=== PATIENT | female | born 1950 | race Caucasian/White ===

== ENCOUNTER → 2016-12-08 | Outpatient (CLI) | payer MEDICARE, OTHER ==
[~2016-12-08] MED LIST: ACTOS30 MG PO; ASPIRIN81 M1 PO; CATAFLAM50 MG PO; CELEXA20 MG PO; CIPRO500 MG PO; FLAGYL500 MG PO; GABAPENTIN600 MG PO; GLIPIZIDE ER2.5 MG PO; GLIPIZIDE XL10 M1 PO; GLIPIZIDE10 MG PO; GREEN TEA150 MG PO; HYDROCODONE BIT1 T11 PO; JANUVIA100 MG PO; LEVOTHYROXIN0.025 MG PO; LISINOPRIL20 MG PO; LOFIBRA134 MG PO; METFORMIN HCL1000 MG PO; METFORMIN1000 MG PO; NEURONTIN300 MG PO; NEURONTIN600 MG PO; NOVOLIN 70100 UNIT/1 SQ; NOVOLOG 70/30 M10 ML SC; NOVOLOG FLEX100 U/ML SC; NOVOLOG10 ML SC; PRAVACHOL40 MG PO; PRAVACHOL80 MG PO; PRAVASTATIN; ROBAXIN750 MG PO; TRAMADOL HCL50 MG PO; VITAMIN D1000 IU PO; ZESTRIL,PRINIVIL5 MG PO
[2016-12-08 10:55] LABS: HEMOGLOBIN A1c 7.7 % (4.8-5.6)
[2016-12-08 11:03] LABS: ALBUMIN 3.8 gm/dl (3.1-4.5); BILIRUBIN, TOTAL 0.2 mg/dl (0.2-1.0); POTASSIUM 4.7 mmol/L (3.5-5.1); TOTAL PROTEIN 7.1 gm/dL (6.4-8.2)
[2016-12-08 11:09] LABS: MAGNESIUM 1.6 mg/dL (1.5-2.1); THYROID STIM HORMONE (HS) 2.88 uIU/ml (0.358-4.75)
== END | disposition home or self-care (01) ==
LOC: LAB 10:09
PROVIDERS: Family Medicine
DX: E11.65 Type 2 diabetes mellitus with hyperglycemia (principal); I10 Essential (primary) hypertension; E03.9 Hypothyroidism, unspecified; E78.5 Hyperlipidemia, unspecified

== ENCOUNTER → 2017-05-20 | Outpatient (CLI) | payer MEDICARE, OTHER ==
[2017-05-20 09:31] LABS: BASO % 0.4 % (0.0-1.0); EOS # 0.1 10*3/uL (0.0-0.4); EOS % 1.1 % (1.0-4.0); HEMATOCRIT 42.9 % (37.0-47.0); LYMPH # 2.2 10*3/uL (1.3-4.4); LYMPH % 27.4 % (27.0-41.0); MEAN CELL VOLUME 86.5 fl (81.0-99.0); MEAN CORPUSCULAR HGB 28.2 pg (27.0-31.0); MEAN CORPUSCULAR HGB CONC 32.6 g/dl (33.0-37.0); MEAN PLATELET VOLUME 10.8 fl (9.6-12.3); MONO # 0.5 10*3/uL (0.1-1.0); MONO % 6.4 % (3.0-9.0); NEUT # 5.1 10*3/uL (2.3-7.9); NEUT % 64.2 % (47.0-73.0); PLATELET COUNT AUTOMATED 236 10*3/uL (130-400); RED BLOOD COUNT 4.96 10*6/uL (4.10-5.10); RED CELL DISTRI WIDTH 14.1 % (0-14.5)
[2017-05-20 10:06] LABS: ALBUMIN 3.9 gm/dl (3.1-4.5); BILIRUBIN, TOTAL 0.3 mg/dl (0.2-1.0); POTASSIUM 4.5 mmol/L (3.5-5.1); TOTAL PROTEIN 7.7 gm/dL (6.4-8.2)
[2017-05-20 10:13] LABS: THYROID STIM HORMONE (HS) 3.23 uIU/ml (0.358-4.75)
[2017-05-21 05:09] LABS: MICRO ALBUMIN/CRE RATIO 54.3 (0.0-30.0)
== END | disposition home or self-care (01) ==
LOC: LAB 09:05
PROVIDERS: Family Medicine
DX: Z00.01 Encounter for general adult medical examination with abnormal findings (principal); E03.9 Hypothyroidism, unspecified; E11.65 Type 2 diabetes mellitus with hyperglycemia; E78.5 Hyperlipidemia, unspecified; E55.9 Vitamin D deficiency, unspecified

== ENCOUNTER → 2017-07-22 | Outpatient (CLI) | payer MEDICARE, OTHER | END | disposition home or self-care (01) | LOC: CARD 09:03 | DX: Z01.818 Encounter for other preprocedural examination (principal) ==

== ENCOUNTER 2017-09-18 17:52 | Emergency (ER) | payer MEDICARE, OTHER ==
[~2017-09-18] VITALS: Ht 160 cm; Wt 65.8 kg
[2017-09-18 17:55] VITALS: BP 156/73
[2017-09-18] MEDS ORDERED: AUGMENTIN 500500 M1 PO (19:39)
[2017-09-18] MEDS ORDERED: NAPROSYN500 MG PO (19:39)
[2017-09-18] MEDS ORDERED: ZOFRAN4 MG PO (19:39)
== END 2017-09-18 19:23 | disposition home or self-care (01) ==
LOC: ED 17:52
DX: S01.511A Laceration without foreign body of lip, initial encounter (principal); Z79.82 Long term (current) use of aspirin; Z79.4 Long term (current) use of insulin; Z98.51 Tubal ligation status; Y93.89 Activity, other specified; Y92.89 Other specified places as the place of occurrence of the external cause; W18.09XA Striking against other object with subsequent fall, initial encounter; Y99.8 Other external cause status

== ENCOUNTER → 2017-09-24 | Outpatient (CLI) | payer MEDICARE, OTHER ==
[~2017-09-24] MED LIST changes: +AUGMENTIN 500500 M1 PO; +NAPROSYN500 MG PO; +ZOFRAN4 MG PO
[2017-09-24 10:11] LABS: CREATININE 1.52 mg/dL (0.55-1.02); POTASSIUM 5.3 mmol/L (3.5-5.1)
== END | disposition home or self-care (01) ==
LOC: LAB 09:18
PROVIDERS: Registered Nurse Flight
DX: E11.65 Type 2 diabetes mellitus with hyperglycemia (principal)

== ENCOUNTER 2017-10-13 15:45 | Emergency (ER) | payer MEDICARE, OTHER ==
[~2017-10-13] VITALS: Ht 160 cm; Wt 64.9 kg
[2017-10-13] MEDS ORDERED: PRINIVIL5 M1 PO (16:33)
[2017-10-13] MEDS ORDERED: POTASSIUM99 M3 PO (16:34)
[2017-10-13 17:03] LABS: ALBUMIN 3.6 gm/dl (3.1-4.5); CREATININE 1.37 mg/dL (0.55-1.02); POTASSIUM 4.5 mmol/L (3.5-5.1); TOTAL PROTEIN 8.2 gm/dL (6.4-8.2)
[2017-10-13 17:31] LABS: BASO % 0.5 % (0.0-1.0); EOS # 0.3 10*3/uL (0.0-0.4); EOS % 4.5 % (1.0-4.0); HEMATOCRIT 41.3 % (37.0-47.0); HEMOGLOBIN 13.5 g/dl (12.0-16.0); LYMPH # 0.8 10*3/uL (1.3-4.4); LYMPH % 12.2 % (27.0-41.0); MEAN CELL VOLUME 85.9 fl (81.0-99.0); MEAN CORPUSCULAR HGB 28.1 pg (27.0-31.0); MEAN CORPUSCULAR HGB CONC 32.7 g/dl (33.0-37.0); MEAN PLATELET VOLUME 10.4 fl (9.6-12.3); MONO # 0.7 10*3/uL (0.1-1.0); MONO % 10.3 % (3.0-9.0); NEUT # 4.6 10*3/uL (2.3-7.9); NEUT % 72.2 % (47.0-73.0); PLATELET COUNT AUTOMATED 222 10*3/uL (130-400); RED BLOOD COUNT 4.81 10*6/uL (4.10-5.10); RED CELL DISTRI WIDTH 14.2 % (0-14.5); WHITE BLOOD COUNT 6.4 10*3/uL (4.8-10.8)
[2017-10-13 17:54] LABS: BILIRUBIN NEGATIVE (NEGATIVE); BLOOD TRACE-INTACT (NEGATIVE); CLARITY SL CLOUDY (CLEAR); COLOR YELLOW (YELLOW); GLUCOSE NEGATIVE (NEGATIVE); KETONE TRACE (NEGATIVE); LEUKO ESTERASE 3+ (NEGATIVE); NITRITE NEGATIVE (NEGATIVE); PH 5.5 (5.0-9.0); SPECIFIC GRAVITY 1.015 (1.005-1.030)
[2017-10-13 18:16] LABS: BACTERIA TRACE; EPITHELIAL CELLS 21-30
[2017-10-13 20:03] VITALS: BP 142/62
== END 2017-10-13 20:35 | disposition short-term general hospital (02) ==
LOC: ED 15:45
PROVIDERS: Nurse Practitioner Family
DX: G91.2 (Idiopathic) normal pressure hydrocephalus (principal); E11.9 Type 2 diabetes mellitus without complications; Z98.51 Tubal ligation status; Z79.899 Other long term (current) drug therapy; Z79.82 Long term (current) use of aspirin; Z79.4 Long term (current) use of insulin; Z91.81 History of falling

== ENCOUNTER → 2017-11-06 | Outpatient (CLI) | payer MEDICARE, OTHER ==
[~2017-11-06] MED LIST changes: +POTASSIUM99 M3 PO; +PRINIVIL5 M1 PO
[2017-11-06 10:16] LABS: BASO % 0.3 % (0.0-1.0); EOS # 0.1 10*3/uL (0.0-0.4); EOS % 0.8 % (1.0-4.0); HEMATOCRIT 40.3 % (37.0-47.0); HEMOGLOBIN 13.2 g/dl (12.0-16.0); LYMPH # 2.1 10*3/uL (1.3-4.4); LYMPH % 22.4 % (27.0-41.0); MEAN CELL VOLUME 86.3 fl (81.0-99.0); MEAN CORPUSCULAR HGB 28.3 pg (27.0-31.0); MEAN CORPUSCULAR HGB CONC 32.8 g/dl (33.0-37.0); MEAN PLATELET VOLUME 10.4 fl (9.6-12.3); MONO # 0.9 10*3/uL (0.1-1.0); MONO % 9.8 % (3.0-9.0); NEUT # 6.2 10*3/uL (2.3-7.9); NEUT % 66.3 % (47.0-73.0); PLATELET COUNT AUTOMATED 441 10*3/uL (130-400); RED BLOOD COUNT 4.67 10*6/uL (4.10-5.10); RED CELL DISTRI WIDTH 15.1 % (0-14.5); WHITE BLOOD COUNT 9.3 10*3/uL (4.8-10.8)
[2017-11-06 10:39] LABS: ALBUMIN 3.6 gm/dl (3.1-4.5); CREATININE 1.6 mg/dL (0.55-1.02); POTASSIUM 4.7 mmol/L (3.5-5.1)
== END | disposition home or self-care (01) ==
LOC: LAB 09:38 → US 10:00
PROVIDERS: Registered Nurse Flight
DX: K80.20 Calculus of gallbladder without cholecystitis without obstruction (principal); I10 Essential (primary) hypertension; N13.30 Unspecified hydronephrosis; K76.89 Other specified diseases of liver

== ENCOUNTER 2017-11-07 19:23 | Inpatient (IN) | payer MEDICARE, OTHER ==
[2017-11-07] VITALS (7 sets, daily range): BP systolic 80–126; BP diastolic 40–80
[~2017-11-07] VITALS: Ht 160 cm; Wt 58.2 kg
--- NOTE | ~2017-11-07 | CON ---
[place], [place] REPORT OF CONSULTATION NAME: NABOR YOU UNIT #: [id number] ROOM: 421 DOCTOR: CHRISTIANA GARAYMARTHA BIRTHDATE: [birth year] DOS: HISTORY OF PRESENT ILLNESS: A 67-year-old patient who has presented with chief complaint of multiple medical problems, among which has been bronchitis that has been addressed, among which is dysphagia to solid food. I have been asked for assessment of the patient in this regard. The patient's labs and records have been reviewed. Sonographic study of gallbladder, bilateral mild hydronephrosis and sludge and stone in the gallbladder. CBC differential, white blood cell 10, H and H of 11 and 36. Lactic acid 2.0. INR 1.0. Urinalysis benign. CT scan of the ____ with contrast, mild parietal scalp hematoma, sinusitis, no intracranial acute pathology. Moderate degenerative changes in cervical spine all has been recognized. PAST MEDICAL HISTORY: Associated with depression, hypertension, hypothyroidism, hyperlipidemia, and diabetes mellitus. PAST SURGICAL HISTORY: Tubal ligation. SOCIAL HISTORY: Nonsmoker and nonalcohol consumer. FAMILY HISTORY: Noncontributory. ALLERGIES: No known medication. MEDICATIONS: Medication list has been reviewed. She has been on clopidogrel and aspirin amongst the other medications. REVIEW OF SYSTEMS: HEENT: Denies double vision or blurred vision. RESPIRATORY: Denies acute shortness of breath. Improvement in breathing. CARDIOVASCULAR: Denies chest pain. DIGESTIVE SYSTEM: Dysphagia to solid food. PHYSICAL EXAMINATION: VITAL SIGNS: Stable. HEENT: Head normocephalic, nontraumatic. Mouth and buccal mucosa benign. NECK: Supple. No thyromegaly. CHEST: Symmetric anatomy. Decreased air entry in general. Otherwise, normal breath sounds. HEART: Normal sinus rhythm. No gallop, no murmur. ABDOMEN: Soft. No hepato-organomegaly. Bowel sounds present. No pulsatile mass. EXTREMITIES: No cyanosis, no pedal edema. NEUROLOGIC: Alert, oriented to time, place, and person. IMPRESSION: Solid food dysphagia, diabetes, hypothyroidism, hypertension, hyperlipidemia all has been recognized. [place], [place] REPORT OF CONSULTATION NAME: NABOR YOU UNIT #: [id number] ROOM: 421 DOCTOR: CHRISTIANA GARAY,MARTHA BIRTHDATE: [birth year] PLAN AND DISCUSSION: We are going to proceed with endoscopic assessment of upper GI tract. Her BUN and creatinine has been normal. MARTHA VILLEDA MD CM:CONSTR:REPORT OF CONSULTATION 1257 11/10/17 1330 interface
--- NOTE | ~2017-11-07 | O ---
[place], [place] O[facility]ATIVE NOTE [id number] UN[facility] #: [id number] ROOM: 421 DOCTOR: CHRISTIANA GARAY,MARTHA BIRTHDATE: [birth year] DOS: 11/10/2017 INDICATIONS: The patient is a 67-year-old who was presented with chief complaint of epigastric abdominal pain, dysphagia, dyspepsia, undergoing investigation. The patient has been on aspirin and Plavix. PROCEDURE: Today's procedure part of investigation is panendoscopy plus photographic series. PREMEDICATION: Versed and Diprivan. SCOPE: Olympus forward-viewing gastroscope Q10 video. REPORT: After putting the patient in left lateral position and application of lubricant to the scope, the scope was introduced. Thereafter, under direct visualization, advanced through the length of esophagus without difficulty. Distal esophageal ulcers, which is relatively moderate to significant was noticed and distal esophageal benign stricture was noticed, hiatal hernia, which is about 2.5 cm identified. Photographic series from the event was obtained. Gastric pouch was entered. Gastritis seen. Duodenal bulb, second and third part within normal limits. The patient extubated, tolerated procedure well. The patient was not biopsied or was not dilated due to the fact that the patient has been on Plavix and aspirin. At the present time, I recommend this patient remains to on Protonix 40 mg p.o. b.i.d. and have re-endoscopy of upper gastrointestinal tract in a month or so redone and as such a time, we are hoping that we can hold aspirin and Plavix for 1 week, so that we can perform some dilation for her. MARTHA VILLEDA MD CM:OPRECORD:OPERATIVE NOTE 1331 1344 MARTHA VILLEDA MD 11/10/17 1345 interface
--- NOTE | 2017-11-07 19:55 | NUR ---
DR GUERRA NOTIFIED OF ORTHOSTATIC BP
--- NOTE | 2017-11-07 20:02 | NUR ---
PT HAD RECENTLY BEEN DISCHARGED FROM [facility], DISCHARGED 10/13/17 WITH HYDROCEPHALIS, TO F/U WITH NEURO IN NOVEMBER 2017
[2017-11-07 20:13] LABS: BASO % 0.4 % (0.0-1.0); BILIRUBIN NEGATIVE (NEGATIVE); BLOOD NEGATIVE (NEGATIVE); CLARITY SL CLOUDY (CLEAR); COLOR YELLOW (YELLOW); EOS # 0.1 10*3/uL (0.0-0.4); EOS % 1.3 % (1.0-4.0); GLUCOSE NEGATIVE (NEGATIVE); HEMOGLOBIN 11.7 g/dl (12.0-16.0); KETONE TRACE (NEGATIVE); LEUKO ESTERASE NEGATIVE (NEGATIVE); LYMPH # 1.6 10*3/uL (1.3-4.4); LYMPH % 15.8 % (27.0-41.0); MEAN CELL VOLUME 85.3 fl (81.0-99.0); MEAN CORPUSCULAR HGB 27.7 pg (27.0-31.0); MEAN CORPUSCULAR HGB CONC 32.5 g/dl (33.0-37.0); MEAN PLATELET VOLUME 10.4 fl (9.6-12.3); MONO % 9.6 % (3.0-9.0); NEUT # 7.4 10*3/uL (2.3-7.9); NEUT % 71.5 % (47.0-73.0); NITRITE NEGATIVE (NEGATIVE); PLATELET COUNT AUTOMATED 348 10*3/uL (130-400); RED BLOOD COUNT 4.22 10*6/uL (4.10-5.10); RED CELL DISTRI WIDTH 14.8 % (0-14.5); SPECIFIC GRAVITY >= 1.030 (1.005-1.030); UROBILINOGEN 0.2 E.U./dl (0.2-1.0); WHITE BLOOD COUNT 10.4 10*3/uL (4.8-10.8)
[2017-11-07 20:28] LABS: LIPASE 958 U/L (73-393)
[2017-11-07 20:30] LABS: BACTERIA TRACE; RBC 0-2 rbc/hpf (0-2); WBC 0-2 wbc/hpf (0-5)
[2017-11-07 20:32] LABS: TROPONIN I < 0.015 ng/ml (<0.045)
--- NOTE | 2017-11-07 21:01 | NUR ---
PT STATES "I FEEL SO MUCH BETTER ALL OVER ALREADY"
[2017-11-07 21:06] LABS: CREATININE 2.3 mg/dL (0.55-1.02); POTASSIUM 5.1 mmol/L (3.5-5.1); TOTAL PROTEIN 6.8 gm/dL (6.4-8.2)
--- NOTE | 2017-11-07 21:58 | NUR ---
DR GUERRA REMOVED Chantale CABAN PLACING CHUN, WHICH HOLDS UP ADMISSION TO FLOOR, NIKKI NOTIFIED
--- NOTE | 2017-11-07 22:30 | NUR ---
A 67, admitted to , under the services of SUSAN Segura DO with a diagnosis of SYNCOPE. Chief complaint is FELL AT HOME. Patient arrived via stretcher from ER. Monitor applied. Initial assessment completed. Vital signs taken and recorded. SUSAN SEGURA DO notified of admission to the unit. Orders received. See assessment for past medical history, medications and allergies. Patient and/or family oriented to unit. [facility]. Clothing/patient valuable form completed. GALE BARTLETT
--- NOTE | 2017-11-07 22:56 | NUR ---
SPOKE TO DR LCOK REGARDING ORDER FOR ORTHOSTATIC BP. MADE HIM AWARE THAT ORTHER WERE JUST DONE IN ER AND POSITIVE. HE STATE TO RE CHECK ORTHOS AY 8AM. ALSO MADE HIM AWARE OF WOUNDS, ORDERS RECEIVED.
--- NOTE | 2017-11-07 23:39 | NUR ---
DR ASHVIN MORGAN ARE OF PT HAVING SVT HR 130'S CURRENTY NSR 60'S. HE STATES TO JUST MONITOR IT FOR NOW.
--- NOTE | 2017-11-07 23:39 | NUR ---
DR LOCK MADE AWARE OF MED REC UP TO DATE
--- NOTE | 2017-11-07 23:43 | NUR ---
DRESSING CHANGED PER ORDER
--- NOTE | 2017-11-08 02:00 | NUR ---
SLEEPING. RESP EASY AND NONLABORED ON ROOM AIR. NO SIGNS OF DISTRESS NOTED. IVF INFUSING PER ORDER WITHOUT DIFFICULTY. CM INTACT. BED ALARM ON. CALL LIGHT IN REACH. WILL CONTINUE TO MONITOR.
--- NOTE | 2017-11-08 05:14 | NUR ---
PT BS CRITICAL LOW, 31. AMP D50 GIVEN AT THIS TIME. PT ALERT, RESPONSIVE, ORIENTED. ASYMPTOMATIC. ORANGE JUICE PROVIDED WELL
[2017-11-08 05:48] LABS: CREATININE 1.59 mg/dL (0.55-1.02); POTASSIUM 4.4 mmol/L (3.5-5.1)
[2017-11-08 05:55] LABS: THYROID STIM HORMONE (HS) 1.74 uIU/ml (0.358-4.75)
[2017-11-08 06:05] LABS: BASO % 0.5 % (0.0-1.0); EOS # 0.1 10*3/uL (0.0-0.4); EOS % 1.7 % (1.0-4.0); HEMATOCRIT 33.8 % (37.0-47.0); LYMPH # 1.4 10*3/uL (1.3-4.4); LYMPH % 16.9 % (27.0-41.0); MEAN CELL VOLUME 85.4 fl (81.0-99.0); MEAN CORPUSCULAR HGB 27.8 pg (27.0-31.0); MEAN CORPUSCULAR HGB CONC 32.5 g/dl (33.0-37.0); MEAN PLATELET VOLUME 10.6 fl (9.6-12.3); MONO # 0.8 10*3/uL (0.1-1.0); MONO % 9.5 % (3.0-9.0); NEUT # 5.9 10*3/uL (2.3-7.9); NEUT % 70.6 % (47.0-73.0); PLATELET COUNT AUTOMATED 319 10*3/uL (130-400); RED BLOOD COUNT 3.96 10*6/uL (4.10-5.10); RED CELL DISTRI WIDTH 14.9 % (0-14.5); WHITE BLOOD COUNT 8.3 10*3/uL (4.8-10.8)
[2017-11-08 06:25] LABS: ACT PARTIAL THROMBO TIME 27.7 SECONDS (20.8-31.5)
--- NOTE | 2017-11-08 06:25 | NUR ---
BS RECHECK 229
--- NOTE | 2017-11-08 07:08 | NUR ---
24 HR chart check completed.
[2017-11-08 08:00] VITALS: BP 97/54
--- NOTE | 2017-11-08 09:13 | NUR ---
Prison Teacher in to talk to patient. Patient states lives at home with . There are few steps in the home. Physician: charissa alexandra Pharmacy: [facility] health services: none Patient's level of ADLs: INDEPENDENT Patient has working utilities: all working DME: none Follow-up physician's appointment after d/c: will be made by hospitalist nurse director upon discharge Does patient want to access PORTAL?: no Discharge plan discussed with patient, patient lives at home with , she states she is independent in adls and ambulation, patient states she will be going back home and denies any home needs. GATO NAVA
[2017-11-08 09:29] LABS: VITAMIN D, 25-HYDROXY 40.1 ng/mL (30-100)
--- NOTE | 2017-11-08 09:49 | NUR ---
ORTHOS POSITIVE. GILBERT FREY NOTIFIED.
--- NOTE | 2017-11-08 10:43 | NUR ---
PHYSICAL THERAPY PAtient evaluated on 4, full evaluation to follow. Continue with PT as per plan of care with fall, recent fall at home down stairs with LOC/closed haed trauma and lacerations, documented in chart orthostatic hypotension and acute debility precautions. Qualifies for SNF, patient refusing. will require complete home health services if d/c to home. PAtient is moderate complexity via chart review, tests and evaluation: 30348. Thank you for this referral. Catalina Raymond,PT
--- NOTE | 2017-11-08 11:13 | NUR ---
Patient available for Occupational Therapy d/t testing. OTR will attempt at a later time. Libra Leon OTR/l
--- NOTE | 2017-11-08 11:39 | NUR ---
NABOR YOU [id number] Please refer to the physician's history and physical for past medical history, comorbid conditions, and allergies. Diagnosis: SYNCOPE Wild Score: 16,AT RISK WOUND DESCRIPTIONS: Location of the wound: right side of head Type of wound: laceration Thickness: Partial Size: 1.5cm x 0.2cm x 0.1cm Tunneling: none Undermining: none Sinus Tract: none Presence of Exudate: none Amount: None Color: Red Odor: None Periwound Skin Appearance: Normal Wound edges: approximated with 3 ramandeep Pain (associated with wound): tender when patient lies on it. How does patient state this happened? pt stated she fell a couple days ago at home. Location of the wound: left forearm proximal Type of wound: skin tear Thickness: Partial Size: 1.7cm x 2.1cm x 0.1cm Tunneling: none Undermining: none Sinus Tract: none Presence of Exudate: Serosanguineous Amount: Light Color: Red Odor: None Periwound Skin Appearance: Normal Wound edges: approximated Pain (associated with wound): none at time of assessment How does patient state this happened? pt stated she fell at home a couple days ago. Location of the wound: left distal forearm Type of wound: skin tear Thickness: Partial Size: 3.1cm x 1.3cm x 0.1cm Tunneling: none Undermining: none Sinus Tract: none Presence of Exudate: Serosanguineous Amount: Light Color: Red Odor: None Periwound Skin Appearance: Normal Wound edges: approximated Pain (associated with wound): none at time of assessment How does patient state this happened? pt stated she fell at home a couple days ago Surface the patient is resting on: Isoflex SKIN PREVENTION RECOMMENDATION: 1. Pressure redistribution support surface as appropriate 2. Elevate heels 3. Remove boots/TEDS every shift and reapply 4. Head of bed 30 degrees as tolerated 5. Assess nutrition and hydration 6. Manage moisture 7. Avoid the use of containment devices while in bed 8. Use absorptive products on surfaces limit layers of linens on bed 9. Turn and reposition every 1-2 hours in bed and every 1 hour in chair as tolerated 10. Weight shifts every 15 minutes while up in chair 11. Offloading with pillows or device to keep heels elevated off bed 12. Monitor skin at least every shift 13. Inspect under medical devices twice a day WOUND TREATMENT RECOMMENDATIONS: Continue current orders for proximal forearm skin tear. Cleanse left distal forearm skin tear with nss and apply sureprep around wound hydrogel to wound versatel to wound cover with optifoam gentle.
[2017-11-08 12:00] VITALS: BP 107/63
--- NOTE | 2017-11-08 12:00 | NUR ---
Received order for snf placement. In to discuss with patient, she stated she will not go to a skilled facility. I asked if she would be interested in VNA and she said she already has that in place with a company from [place]. I will contact [facility] and see if patient is active with them.
--- NOTE | 2017-11-08 12:03 | NUR ---
Contacted [facility], they are not active with this patient and have not had her in the past.
--- NOTE | 2017-11-08 13:38 | NUR ---
Occupational Therapy evaluation completed this date onl 4 with full eval to follow. Precautions include fall risk, bed, chair alarm, LAC COURTE OREILLES w/ hearing aides, moderate complexity level [id number]. Recommend OT per pOC and SNF upon d/c to allow safe return home w/ family at OF. Thank you for this referral. Libra Leon OTR/l
--- NOTE | 2017-11-08 13:40 | NUR ---
Patient is now agreeing to snf placement. Discussed with her and family memebers at bedside. Offered list of facilities, patient stated she lives in [facility] and would like a referral made to [facility]. Contacted [facility] and faxed referral, patient will require 3 night stay, waiting on acceptance.
--- NOTE | 2017-11-08 14:58 | NUR ---
PHYSICAL THERAPY Patient presented to therapy in seated position with report of feeling much better and wanting to do therapy. Patient performed sit to stand transfer with SBA and verbal cues for pushing off chair with hands. Patient had left lean when standing at W/W. Patient performed gait with W/W and CGA to Min. A X 1 for 100' x 1 with left lateral lean and unsteadiness. Patient was going to attempt 2 steps , but this CRIMINAL JUSTICE SOCIAL WORKER determined that the patient was too unsteady and off-balance at this time, to safely attempt stairs. Patient performed seated ther ex in all planes of movement x 20 reps each. Patient was left in seated position with body alarm attached and call light within reach. YRN REYES CRIMINAL JUSTICE SOCIAL WORKER
[2017-11-08 16:00] VITALS: BP 105/60
--- NOTE | 2017-11-08 19:30 | NUR ---
PT. AWAKE, ALERT, AND ORIENTED X 3. PT. IN BED AT THIS TIME WITH FAMILY IN THE ROOM. PT. DENIES CP, SOB, AND PAIN AT THIS TIME. PT. C/O DIZZINESS WHEN AMBULATING EARLIER. PT. IS + ORTHOS, ADVISED TO USE CALL LIGHT FOR ASSISTANCE, AND TO TAKE TIME WHEN STANDING. BED ALARM ON, WHEELS LOCKED, BED IN LOWEST POSITION. SEE SHIFT ASSESSMENT.
[2017-11-08 20:00] VITALS: BP 119/88
--- NOTE | 2017-11-08 21:57 | NUR ---
D/C SLIDING SCALE DUPLICATE AT THIS TIME.
[2017-11-09] VITALS: BP 109/61
[2017-11-09 06:18] LABS: BASO % 0.3 % (0.0-1.0); EOS # 0.3 10*3/uL (0.0-0.4); EOS % 5.4 % (1.0-4.0); HEMATOCRIT 30.1 % (37.0-47.0); HEMOGLOBIN 9.8 g/dl (12.0-16.0); LYMPH # 1.8 10*3/uL (1.3-4.4); LYMPH % 28.8 % (27.0-41.0); MEAN CELL VOLUME 86.2 fl (81.0-99.0); MEAN CORPUSCULAR HGB 28.1 pg (27.0-31.0); MEAN CORPUSCULAR HGB CONC 32.6 g/dl (33.0-37.0); MEAN PLATELET VOLUME 10.1 fl (9.6-12.3); MONO # 0.8 10*3/uL (0.1-1.0); MONO % 12.3 % (3.0-9.0); NEUT # 3.3 10*3/uL (2.3-7.9); NEUT % 52.7 % (47.0-73.0); PLATELET COUNT AUTOMATED 248 10*3/uL (130-400); RED BLOOD COUNT 3.49 10*6/uL (4.10-5.10); RED CELL DISTRI WIDTH 14.8 % (0-14.5); WHITE BLOOD COUNT 6.3 10*3/uL (4.8-10.8)
[2017-11-09 06:51] LABS: ALBUMIN 2.4 gm/dl (3.1-4.5); CREATININE 1.12 mg/dL (0.55-1.02); POTASSIUM 4.9 mmol/L (3.5-5.1); TOTAL PROTEIN 5.6 gm/dL (6.4-8.2)
--- NOTE | 2017-11-09 07:35 | NUR ---
Mary Jo from [facility] stated they have no beds available at this time. In to discuss with patient who then asked for a referral to [facility]> Referral faxed to [facility], waiting on acceptance.
[2017-11-09 08:00] VITALS: BP 150/73
--- NOTE | 2017-11-09 08:01 | NUR ---
PHYSICAL THERAPY Patient was sleeping at 8:00 am. Will check back later. YRN REYES BROKERAGE PURCHASE AND SALE CLERK
--- NOTE | 2017-11-09 10:07 | NUR ---
PRN PAIN GIVEN FOR 3/10 R SHOULDER PAIN.
--- NOTE | 2017-11-09 10:25 | NUR ---
PHYSICAL THERAPY Xi seen this AM 1:1 for her therapy yaron, this is my first time working with her, present. Transfer sit/stand and up on wheeled walker standing balance and needing cues to push off from her chair to satnd. Gait with W/W 90' X 2, with one sitting rest. Pt did not lean to her left this gait. Pt given verbal cueing for gait, walker, turn safety, stop/start gait and back sitting up in her bedside chair, call light and phone, going to stay. LEXY PPAPAS GRAIN THRESHER.
--- NOTE | 2017-11-09 10:45 | NUR ---
PATIENT SEEN FOR 32 MINUTES OT 1:1 THIS DATE. PATIENT IDENTIFIED BY NAME AND DATE OF . PATIENT IN BED UPON ARRIVAL. PATIENT COMPLETED SUPINE TO SIT CGA. COMPLETED BUE UE STR. SEATED EOB WITH F+ BALANCE AND COMPLETED BUE AROM ALL PLANES 2 SETS X 10 REPS WITH MOD VERBAL CUES TECHNIQUE/FORM. PATIENT DECLINED TO COMPLETE GROOMING THIS DATE STATING THAT SHE HAS CHUN IN HER HEAD AND DOES NOT WANT TO BOTHER. PATIENT COMPLETED SIT TO STAND FROM BED CGA VERBAL CUES PROPER HAND PLACEMENT SECONDARY DECREASE SAFETY AWARENESS. PATIENT COMPLETED STANDING TOLERANCE ACTIVITY USE FWW 3 MINUTES WITH FATIGUE. COMPLETED AMBULATION SHORT DISTANCE USE FWW CGA WITH LEANING NOTED LEFT SIDE AND VERBAL CUES TO CORRECT AND UNSTEADY GAIT. PATIENT SEATED IN RECLINER WITH BREAKFAST TRAY AND AND CALL LIGHT WITHIN REACH. ALVINO YOU
--- NOTE | 2017-11-09 11:07 | NUR ---
PRN PAIN MED EFFECTIVE PT DENIES PAIN.
[2017-11-09 12:00] VITALS: BP 112/51; BP 140/53
--- NOTE | 2017-11-09 12:18 | NUR ---
Patient accepted to [facility], PASS/RR completed online in [facility] system. Patient requires 3 night stay, can go tomorrow 11/10/17 if medically stable for discharge.
--- NOTE | 2017-11-09 14:10 | NUR ---
PHYSICAL THERAPY Pt seen this PM 1:1 for her therapy, All transfers were MIN A X 1, with cueing for safety. Gait 10 steps with MOD CAN WORKER X 1, verbal cues for stair safety and will need someone with her at all times. Gait with wheeled walker 80' X 2, one sitting rest, HR 89 BPM after getting back in bed, family present. LEXY PAPPAS BINGO USHER.
[2017-11-09 16:00] VITALS: BP 168/84
--- NOTE | 2017-11-09 19:50 | NUR ---
PT. AWAKE, ALERT AND ORIENTED X 3 AT THIS TIME. PT. IN BED AT THIS TIME WITH FAMILY AT BEDSIDE. PT. DENIES CP, SOB, OR PAIN AT THIS TIME. PT. STATED SHE HAS INTERMITTENT PERIODS OF DIFFICULTY SWALLOWING. CALL LIGHT WITHIN REACH, BED IN LOWEST POSITION, WHEELS LOCKED. SEE SHIFT ASSESSMENT.
[2017-11-09 20:00] VITALS: BP 134/68; BP 167/80
--- NOTE | 2017-11-09 20:30 | NUR ---
SPOKE WITH DR. VILLEDA AT THIS TIME REGARDING CONSULT. ORDERS RECEIVED.
--- NOTE | 2017-11-09 22:11 | NUR ---
NOTIFIED DR. DUMONT OF PTS. 14 BEAT RUN OF SVT, AND PTS. STABLE STATUS AND RETURN TO NSR. PER DR. DUMONT, HE WILL BE UP TO SEE THE PT.
[2017-11-10] VITALS (10 sets, daily range): BP systolic 133–170; BP diastolic 62–75
[2017-11-10 06:49] LABS: BASO % 0.5 % (0.0-1.0); EOS # 0.3 10*3/uL (0.0-0.4); EOS % 4.9 % (1.0-4.0); HEMATOCRIT 33.2 % (37.0-47.0); HEMOGLOBIN 10.7 g/dl (12.0-16.0); LYMPH # 1.9 10*3/uL (1.3-4.4); LYMPH % 31.3 % (27.0-41.0); MEAN CELL VOLUME 85.1 fl (81.0-99.0); MEAN CORPUSCULAR HGB 27.4 pg (27.0-31.0); MEAN CORPUSCULAR HGB CONC 32.2 g/dl (33.0-37.0); MEAN PLATELET VOLUME 10.3 fl (9.6-12.3); MONO # 0.6 10*3/uL (0.1-1.0); MONO % 10.5 % (3.0-9.0); NEUT # 3.2 10*3/uL (2.3-7.9); NEUT % 52.3 % (47.0-73.0); PLATELET COUNT AUTOMATED 268 10*3/uL (130-400); RED CELL DISTRI WIDTH 14.8 % (0-14.5); WHITE BLOOD COUNT 6.1 10*3/uL (4.8-10.8)
[2017-11-10 07:09] LABS: ALBUMIN 2.7 gm/dl (3.1-4.5); ALKALINE PHOSPHATASE 216 U/L (45-117); CHLORIDE 111 mmol/L (98-107); CREATININE 0.84 mg/dL (0.55-1.02); POTASSIUM 4.9 mmol/L (3.5-5.1); SGOT/AST 23 IU/L (3-35); SGPT/ALT 30 U/L (12-78); SODIUM 141 mmol/L (136-145); TOTAL PROTEIN 6.5 gm/dL (6.4-8.2)
[2017-11-10 07:38] LABS: BUN 14 mg/dl (7-24)
--- NOTE | 2017-11-10 08:06 | NUR ---
OCCUPATIONAL THERAPY CO-SIGN I approve of the Occupational Therapy notes written above. COLE SOTO OTR/Hector
--- NOTE | 2017-11-10 10:23 | NUR ---
PHYSICAL THERAPY Mrs Urban seen this AM 1:1 for her therapy session, said she's to her her EDG this morning. Transfer supine/sit CGA X 1, sitting balance X 4 min and did not get dizzy, CGA X 1. Sit/stand standing balance with wheeled walker MIN A X 1. Gait 210' X 1, said thats all this morning just feel tired this morning. Gait with W/W verbal cueing for gait, walker, turn safety no LOB with this and just wanting to rest. Pt with call light and phone, will check back later today. LEXY PAPPAS LABORATORY WORKER.
[2017-11-10] MEDS ORDERED: PROTONIX40 MG PO (14:40)
[2017-11-10] MEDS ORDERED: REGLAN5 MG PO (14:40)
--- NOTE | 2017-11-10 14:52 | NUR ---
Patient is discharged to [facility], transportation via private car with her daughter. Told [facility] patient should arrive around 4:30
--- NOTE | 2017-11-10 15:45 | NUR ---
Discharge instructions reviewed with patient/family. Patient receptive and verbalizes understanding. Follow-up care arranged. Written instructions given to patient/family. JONNY PATRICK
--- NOTE | 2017-11-11 07:58 | NUR ---
PHYSICAL THERAPY CO-SIGN I approve of the Phyical Therapy notes written above. CANDELARIA SOLER PT
== END 2017-11-10 15:45 | disposition other institution (70) | DRG 637 ==
LOC: ED 19:23 → EDHOLD 21:31 → 4E 21:31
PROVIDERS: Emergency Medicine Emergency Medical Services; Internal Medicine; Registered Nurse; ADMIT Internal Medicine
PROC: 0DJ08ZZ Inspection of Upper Intestinal Tract, Via Natural or Artificial Opening Endoscopic (ICD-10-PCS; principal; 2017-11-10)
DX: E11.65 Type 2 diabetes mellitus with hyperglycemia (principal); N17.0 Acute kidney failure with tubular necrosis; E67.8 Other specified hyperalimentation; E11.649 Type 2 diabetes mellitus with hypoglycemia without coma; K22.10 Ulcer of esophagus without bleeding; R13.10 Dysphagia, unspecified; R55 Syncope and collapse; E86.0 Dehydration; E86.1 Hypovolemia; W18.39XA Other fall on same level, initial encounter; W10.9XXA Fall (on) (from) unspecified stairs and steps, initial encounter; F32.9 Major depressive disorder, single episode, unspecified; I10 Essential (primary) hypertension; E03.9 Hypothyroidism, unspecified; E78.2 Mixed hyperlipidemia; K29.70 Gastritis, unspecified, without bleeding; K44.9 Diaphragmatic hernia without obstruction or gangrene; S01.81XA Laceration without foreign body of other part of head, initial encounter; Z79.4 Long term (current) use of insulin; Z81.1 Family history of alcohol abuse and dependence; Y93.89 Activity, other specified; Y92.099 Unspecified place in other non-institutional residence as the place of occurrence of the external cause; Y99.8 Other external cause status; Z82.49 Family history of ischemic heart disease and other diseases of the circulatory system; Z79.82 Long term (current) use of aspirin; Z79.84 Long term (current) use of oral hypoglycemic drugs; Z79.899 Other long term (current) drug therapy; Z98.51 Tubal ligation status

== ENCOUNTER → 2017-12-23 | Outpatient (CLI) | payer MEDICARE, OTHER ==
[~2017-12-23] MED LIST changes: +PROTONIX40 MG PO; +REGLAN5 MG PO
[2017-12-24 07:06] LABS: IMMUNOGLOBULIN G, QNT 716 mg/dL (700-1600); IMMUNOGLOBULIN M, QNT 58 mg/dL (26-217)
[2017-12-25 11:04] LABS: METHYLMALONIC ACID 706961 182 nmol/L (0-378)
== END ==
LOC: LAB 10:59
PROVIDERS: Psychiatry & Neurology Neurology
DX: I10 Essential (primary) hypertension (principal); R20.0 Anesthesia of skin; R20.2 Paresthesia of skin; R93.0 Abnormal findings on diagnostic imaging of skull and head, not elsewhere classified; Z79.899 Other long term (current) drug therapy

== ENCOUNTER → 2018-01-21 | Outpatient (CLI) | payer MEDICARE, OTHER ==
[2018-01-21 09:38] LABS: HEMATOCRIT 40.6 % (37.0-47.0); HEMOGLOBIN 12.7 g/dl (12.0-16.0); MEAN CELL VOLUME 86.6 fl (81.0-99.0); MEAN CORPUSCULAR HGB 27.1 pg (27.0-31.0); MEAN CORPUSCULAR HGB CONC 31.3 g/dl (33.0-37.0); MEAN PLATELET VOLUME 11.2 fl (9.6-12.3); RED BLOOD COUNT 4.69 10*6/uL (4.10-5.10); RED CELL DISTRI WIDTH 14.6 % (0-14.5); WHITE BLOOD COUNT 7.7 10*3/uL (4.8-10.8)
[2018-01-21 10:01] LABS: ALBUMIN 3.8 gm/dl (3.1-4.5); CREATININE 1.12 mg/dL (0.55-1.02); POTASSIUM 4.6 mmol/L (3.5-5.1); TOTAL PROTEIN 7.5 gm/dL (6.4-8.2)
[2018-01-21 10:07] LABS: THYROID STIM HORMONE (HS) 2.15 uIU/ml (0.358-4.75)
== END | disposition home or self-care (01) ==
LOC: LAB 09:01
PROVIDERS: Registered Nurse Flight
DX: E03.9 Hypothyroidism, unspecified (principal); E55.9 Vitamin D deficiency, unspecified; E78.5 Hyperlipidemia, unspecified; N18.4 Chronic kidney disease, stage 4 (severe); E11.65 Type 2 diabetes mellitus with hyperglycemia

== ENCOUNTER 2018-04-19 17:37 | Inpatient (IN) | payer MEDICARE, OTHER ==
[~2018-04-19] VITALS: Ht 157.5 cm; Wt 62.1 kg
[2018-04-19 17:42] VITALS: BP 140/51
[2018-04-19 17:56] VITALS: BP 140/51
[2018-04-19] MEDS ORDERED: GLIPIZIDE ER10 M1 PO (18:21)
[2018-04-19] MEDS ORDERED: ASPIR 8181 MG PO (18:22)
[2018-04-19 18:29] LABS: BASO % 0.3 % (0.0-1.0); EOS # 0.1 10*3/uL (0.0-0.4); EOS % 1.3 % (1.0-4.0); HEMATOCRIT 35.1 % (37.0-47.0); HEMOGLOBIN 11.6 g/dl (12.0-16.0); LYMPH # 1.9 10*3/uL (1.3-4.4); LYMPH % 24.6 % (27.0-41.0); MEAN CELL VOLUME 87.5 fl (81.0-99.0); MEAN CORPUSCULAR HGB 28.9 pg (27.0-31.0); MEAN PLATELET VOLUME 10.9 fl (9.6-12.3); MONO # 0.6 10*3/uL (0.1-1.0); MONO % 7.6 % (3.0-9.0); NEUT % 65.8 % (47.0-73.0); PLATELET COUNT AUTOMATED 218 10*3/uL (130-400); RED BLOOD COUNT 4.01 10*6/uL (4.10-5.10); RED CELL DISTRI WIDTH 14.7 % (0-14.5); WHITE BLOOD COUNT 7.6 10*3/uL (4.8-10.8)
[2018-04-19 18:41] LABS: ACT PARTIAL THROMBO TIME 22.7 SECONDS (20.8-31.5); INTERNATIONAL NORM RATIO 0.9 (2.0-3.5)
[2018-04-19 18:46] LABS: ALBUMIN 3.6 gm/dl (3.1-4.5); ALKALINE PHOSPHATASE 55 U/L (45-117); BUN 23 mg/dl (7-24); CHLORIDE 105 mmol/L (98-107); CREATININE 1.45 mg/dL (0.55-1.02); LIPASE 407 U/L (73-393); POTASSIUM 4.8 mmol/L (3.5-5.1); SGOT/AST 18 IU/L (3-35); SGPT/ALT 20 U/L (12-78); SODIUM 138 mmol/L (136-145)
[2018-04-19 18:47] LABS: TROPONIN I < 0.015 ng/ml (<0.045)
[2018-04-19 18:48] LABS: TOTAL PROTEIN 6.6 gm/dL (6.4-8.2)
[2018-04-19 20:17] LABS: BILIRUBIN NEGATIVE (NEGATIVE); BLOOD NEGATIVE (NEGATIVE); CLARITY SL CLOUDY (CLEAR); COLOR YELLOW (YELLOW); GLUCOSE 3+ (NEGATIVE); KETONE NEGATIVE (NEGATIVE); LEUKO ESTERASE 1+ (NEGATIVE); NITRITE NEGATIVE (NEGATIVE); PH 5.5 (5.0-9.0); UROBILINOGEN 0.2 E.U./dl (0.2-1.0)
[2018-04-19 20:34] LABS: RBC 0-2 rbc/hpf (0-2)
[2018-04-19 20:35] LABS: BACTERIA 2+
[2018-04-20] VITALS: BP 150/66
[2018-04-20 06:31] LABS: BASO % 0.5 % (0.0-1.0); EOS # 0.1 10*3/uL (0.0-0.4); EOS % 1.9 % (1.0-4.0); HEMATOCRIT 37.6 % (37.0-47.0); HEMOGLOBIN 11.9 g/dl (12.0-16.0); LYMPH % 34.4 % (27.0-41.0); MEAN CELL VOLUME 86.2 fl (81.0-99.0); MEAN CORPUSCULAR HGB 27.3 pg (27.0-31.0); MEAN CORPUSCULAR HGB CONC 31.6 g/dl (33.0-37.0); MEAN PLATELET VOLUME 10.7 fl (9.6-12.3); MONO # 0.5 10*3/uL (0.1-1.0); MONO % 9.2 % (3.0-9.0); NEUT # 3.1 10*3/uL (2.3-7.9); NEUT % 53.7 % (47.0-73.0); PLATELET COUNT AUTOMATED 190 10*3/uL (130-400); RED BLOOD COUNT 4.36 10*6/uL (4.10-5.10); RED CELL DISTRI WIDTH 14.6 % (0-14.5); WHITE BLOOD COUNT 5.9 10*3/uL (4.8-10.8)
[2018-04-20 06:43] LABS: ALBUMIN 3.5 gm/dl (3.1-4.5); ALKALINE PHOSPHATASE 50 U/L (45-117); BUN 16 mg/dl (7-24); CHLORIDE 112 mmol/L (98-107); CHOLESTEROL 186 mg/dL (<200); CREATININE 1.04 mg/dL (0.55-1.02); FREE T4 0.69 ng/dl (0.76-1.46); HDL CHOLESTEROL 35 mg/dl (40-60); LDL CHOLESTEROL 100 mg/dL (9-159); PHOSPHOROUS 3.5 mg/dL (2.5-4.9); POTASSIUM 5.2 mmol/L (3.5-5.1); SGOT/AST 12 IU/L (3-35); SGPT/ALT 16 U/L (12-78); SODIUM 147 mmol/L (136-145); TOTAL PROTEIN 6.6 gm/dL (6.4-8.2); TRIGLYCERIDES 255 mg/dl (<150); VLDL CHOLESTEROL 51 mg/dL (6-40)
[2018-04-20 08:00] VITALS: BP 138/83
[2018-04-20] MEDS ORDERED: PROTONIX40 MG PO (10:43)
[2018-04-20] MEDS ORDERED: REGLAN5 MG PO (10:44)
[2018-04-20 12:00] VITALS: BP 140/78
[2018-04-20 16:00] VITALS: BP 176/66
== END 2018-04-20 18:40 | disposition home or self-care (01) | DRG 683 ==
LOC: ED 17:37 → EDHOLD 20:26 → 5E 20:55
PROVIDERS: Family Medicine; Nurse Practitioner Family
DX: N17.0 Acute kidney failure with tubular necrosis (principal); E87.2 Acidosis; E11.22 Type 2 diabetes mellitus with diabetic chronic kidney disease; E11.65 Type 2 diabetes mellitus with hyperglycemia; I67.82 Cerebral ischemia; D64.9 Anemia, unspecified; E03.9 Hypothyroidism, unspecified; E78.2 Mixed hyperlipidemia; R29.6 Repeated falls; E86.0 Dehydration; R74.8 Abnormal levels of other serum enzymes; E78.1 Pure hyperglyceridemia; I12.9 Hypertensive chronic kidney disease with stage 1 through stage 4 chronic kidney disease, or unspecified chronic kidney disease; N18.3 Chronic kidney disease, stage 3 (moderate); M17.12 Unilateral primary osteoarthritis, left knee; E87.5 Hyperkalemia; Z86.73 Personal history of transient ischemic attack (TIA), and cerebral infarction without residual deficits; Z79.84 Long term (current) use of oral hypoglycemic drugs; Z79.82 Long term (current) use of aspirin; Z79.899 Other long term (current) drug therapy; Z98.51 Tubal ligation status; Z82.49 Family history of ischemic heart disease and other diseases of the circulatory system; Z81.1 Family history of alcohol abuse and dependence

== ENCOUNTER → 2018-04-23 | Outpatient (CLI) | payer MEDICARE, OTHER ==
[~2018-04-23] MED LIST changes: +ASPIR 8181 MG PO; +GLIPIZIDE ER10 M1 PO
[2018-04-23 09:09] LABS: CREATININE 1.25 mg/dL (0.55-1.02); POTASSIUM 4.7 mmol/L (3.5-5.1)
== END | disposition home or self-care (01) ==
LOC: LAB 08:14
PROVIDERS: Internal Medicine
DX: E87.5 Hyperkalemia (principal)

== ENCOUNTER → 2018-05-30 | Outpatient (CLI) | payer MEDICARE, OTHER ==
[2018-05-30 13:26] LABS: CHOLESTEROL 207 mg/dL (<200); HDL CHOLESTEROL 36 mg/dl (40-60); TRIGLYCERIDES 646 mg/dl (<150)
[2018-05-30 13:33] LABS: HEMATOCRIT 39.2 % (37.0-47.0); HEMOGLOBIN 12.2 g/dl (12.0-16.0); MEAN CELL VOLUME 89.3 fl (81.0-99.0); MEAN CORPUSCULAR HGB 27.8 pg (27.0-31.0); MEAN CORPUSCULAR HGB CONC 31.1 g/dl (33.0-37.0); MEAN PLATELET VOLUME 11.7 fl (9.6-12.3); RED BLOOD COUNT 4.39 10*6/uL (4.10-5.10); RED CELL DISTRI WIDTH 14.6 % (0-14.5); WHITE BLOOD COUNT 10.2 10*3/uL (4.8-10.8)
== END | disposition home or self-care (01) ==
LOC: LAB 12:23 → US 12:30
PROVIDERS: Registered Nurse Flight
DX: M71.22 Synovial cyst of popliteal space [Baker], left knee (principal); E11.22 Type 2 diabetes mellitus with diabetic chronic kidney disease; N18.4 Chronic kidney disease, stage 4 (severe); E78.5 Hyperlipidemia, unspecified; M25.862 Other specified joint disorders, left knee; M79.89 Other specified soft tissue disorders

== ENCOUNTER → 2018-06-22 | Outpatient (CLI) | payer MEDICARE, OTHER ==
[2018-06-22 11:28] LABS: HEMATOCRIT 39.6 % (37.0-47.0); HEMOGLOBIN 12.5 g/dl (12.0-16.0); MEAN CORPUSCULAR HGB 27.8 pg (27.0-31.0); MEAN CORPUSCULAR HGB CONC 31.6 g/dl (33.0-37.0); MEAN PLATELET VOLUME 11.1 fl (9.6-12.3); RED BLOOD COUNT 4.5 10*6/uL (4.10-5.10); RED CELL DISTRI WIDTH 13.6 % (0-14.5); WHITE BLOOD COUNT 11.2 10*3/uL (4.8-10.8)
[2018-06-22 11:56] LABS: ALBUMIN 3.8 gm/dl (3.1-4.5); CREATININE 1.73 mg/dL (0.55-1.02); POTASSIUM 4.5 mmol/L (3.5-5.1); TOTAL PROTEIN 7.4 gm/dL (6.4-8.2)
[2018-06-22 12:02] LABS: THYROID STIM HORMONE (HS) 3.04 uIU/ml (0.358-4.75)
[2018-06-23 08:10] LABS: RHEUMATOID ARTHRITIS FACTOR <10.0 IU/mL (0.0-13.9)
[2018-06-23 10:08] LABS: SJOGREN ANTI-SS-A <0.2 AI (0.0-0.9); SJOREN AB, ANTI-SS-B <0.2 AI (0.0-0.9)
[2018-06-23 17:10] LABS: DILUTE PROTHROMBIN TIME 45.9 sec (0.0-55.0); DPT CONFIRM RATIO 1.19 Ratio (0.00-1.40); LUPUS DRVVT 40.5 sec (0.0-47.0); LUPUS REFLEX INTERPRETATION Comment: (.); PTT-LA 28.9 sec (0.0-51.9); THROMBIN TIME 18.3 sec (0.0-23.0)
== END | disposition home or self-care (01) ==
LOC: LAB 10:43
PROVIDERS: Registered Nurse Flight
DX: E11.65 Type 2 diabetes mellitus with hyperglycemia (principal); R76.8 Other specified abnormal immunological findings in serum; E78.5 Hyperlipidemia, unspecified; E03.9 Hypothyroidism, unspecified

== ENCOUNTER 2018-11-14 17:03 | Inpatient (IN) | payer MEDICARE, OTHER ==
[~2018-11-14] VITALS: Ht 160 cm; Wt 60.6 kg
--- NOTE | ~2018-11-14 | EKG ---
[place], [place] ELECTROCARDIOGRAM REPORT NAME: NABOR YOU UNIT #: [id number] ROOM: 512 DOCTOR: TASHI DRAFT REPORT BIRTHDATE: [birth year] [facility] Test Date: 2018-11-14 Test Time: 17:13:43 Pat Name: NABOR YOU Department: er Room: 512 Gender: F Extractor Loader And Unloader: EKG.[place] : 1950 Requested By: MARGARITA FISH Order Number: [id number] Reading MD: Gama Calloway MD Measurements Intervals [place] Rate: 65 P: 23 GA: 175 QRS: -42 QRSD: 89 T: -4 QT: 402 QTc: 418 Interpretive Statements Sinus rhythm Abnormal R-wave progression, early transition Left anterior fascicular block Baseline wander in lead(s) II,III,aVF Electronically Signed On 11-15-2018 8:23:13 PST by Gama Calloway MD CM:EKGRPT:ELECTROCARDIOGRAM REPORT 1713 0823 MARGARITA GIRALDO DRAFT REPORT MARGARITA FISH DO
[2018-11-14 17:06] VITALS: BP 156/72
[2018-11-14 17:31] LABS: BASO % 0.5 % (0.0-1.0); EOS # 0.1 10*3/uL (0.0-0.4); EOS % 0.9 % (1.0-4.0); HEMATOCRIT 35.3 % (37.0-47.0); HEMOGLOBIN 11.3 g/dl (12.0-16.0); LYMPH # 1.6 10*3/uL (1.3-4.4); LYMPH % 19.9 % (27.0-41.0); MEAN CELL VOLUME 86.9 fl (81.0-99.0); MEAN CORPUSCULAR HGB 27.8 pg (27.0-31.0); MEAN PLATELET VOLUME 10.9 fl (9.6-12.3); MONO # 0.6 10*3/uL (0.1-1.0); MONO % 7.8 % (3.0-9.0); NEUT # 5.5 10*3/uL (2.3-7.9); NEUT % 70.5 % (47.0-73.0); PLATELET COUNT AUTOMATED 260 10*3/uL (130-400); RED BLOOD COUNT 4.06 10*6/uL (4.10-5.10); RED CELL DISTRI WIDTH 13.5 % (0-14.5); WHITE BLOOD COUNT 7.9 10*3/uL (4.8-10.8)
[2018-11-14 17:40] LABS: ACT PARTIAL THROMBO TIME 23.4 SECONDS (20.8-31.5)
[2018-11-14 17:50] LABS: ALBUMIN 3.5 gm/dl (3.1-4.5); ALKALINE PHOSPHATASE 65 U/L (45-117); BUN 21 mg/dl (7-24); CHLORIDE 109 mmol/L (98-107); CREATININE 1.39 mg/dL (0.55-1.02); LIPASE 335 U/L (73-393); POTASSIUM 4.5 mmol/L (3.5-5.1); SGOT/AST 8 IU/L (3-35); SGPT/ALT 12 U/L (12-78); SODIUM 140 mmol/L (136-145); TOTAL PROTEIN 6.8 gm/dL (6.4-8.2); TROPONIN I < 0.015 ng/ml (<0.045)
[2018-11-14 18:10] LABS: BILIRUBIN NEGATIVE (NEGATIVE); BLOOD NEGATIVE (NEGATIVE); CLARITY CLEAR (CLEAR); COLOR YELLOW (YELLOW); GLUCOSE 1+ (NEGATIVE); KETONE NEGATIVE (NEGATIVE); LEUKO ESTERASE 1+ (NEGATIVE); NITRITE NEGATIVE (NEGATIVE); PH 5.5 (5.0-9.0); UROBILINOGEN 0.2 E.U./dl (0.2-1.0)
[2018-11-14 18:18] LABS: RBC 0-2 rbc/hpf (0-2)
[2018-11-14 20:15] VITALS: BP 144/75; BP 167/67
[2018-11-14 20:20] VITALS: BP 144/75
[2018-11-15] VITALS (7 sets, daily range): BP systolic 110–180; BP diastolic 60–102
[2018-11-15 06:31] LABS: BASO % 0.4 % (0.0-1.0); EOS # 0.1 10*3/uL (0.0-0.4); EOS % 1.3 % (1.0-4.0); HEMATOCRIT 36.1 % (37.0-47.0); HEMOGLOBIN 11.8 g/dl (12.0-16.0); LYMPH # 2.1 10*3/uL (1.3-4.4); LYMPH % 29.8 % (27.0-41.0); MEAN CELL VOLUME 85.1 fl (81.0-99.0); MEAN CORPUSCULAR HGB 27.8 pg (27.0-31.0); MEAN CORPUSCULAR HGB CONC 32.7 g/dl (33.0-37.0); MEAN PLATELET VOLUME 10.6 fl (9.6-12.3); MONO # 0.6 10*3/uL (0.1-1.0); MONO % 7.8 % (3.0-9.0); NEUT # 4.2 10*3/uL (2.3-7.9); NEUT % 60.3 % (47.0-73.0); PLATELET COUNT AUTOMATED 251 10*3/uL (130-400); RED BLOOD COUNT 4.24 10*6/uL (4.10-5.10); RED CELL DISTRI WIDTH 13.5 % (0-14.5)
[2018-11-15 07:04] LABS: ALBUMIN 3.1 gm/dl (3.1-4.5); BUN 15 mg/dl (7-24); CHLORIDE 114 mmol/L (98-107); POTASSIUM 3.9 mmol/L (3.5-5.1); SGOT/AST 12 IU/L (3-35); SODIUM 144 mmol/L (136-145)
[2018-11-15 07:15] LABS: ALKALINE PHOSPHATASE 64 U/L (45-117); CREATININE 1.05 mg/dL (0.55-1.02); FREE T4 0.78 ng/dl (0.76-1.46); SGPT/ALT 13 U/L (12-78); TOTAL PROTEIN 6.6 gm/dL (6.4-8.2)
[2018-11-15] MEDS ORDERED: EFFEXOR XR37.5 M1 PO (11:13)
[2018-11-16] VITALS: BP 115/69
[2018-11-16 06:47] LABS: BUN 12 mg/dl (7-24); CHLORIDE 117 mmol/L (98-107); CREATININE 1.04 mg/dL (0.55-1.02); POTASSIUM 5.1 mmol/L (3.5-5.1); SODIUM 146 mmol/L (136-145)
== END 2018-11-16 10:51 | disposition home health service (06) | DRG 312 ==
LOC: ED 17:03 → 5E 19:03 → EDHOLD 19:03 → 5E 19:30
PROVIDERS: Emergency Medicine; Family Medicine
DX: I95.1 Orthostatic hypotension (principal); N17.0 Acute kidney failure with tubular necrosis; G91.2 (Idiopathic) normal pressure hydrocephalus; E86.0 Dehydration; N18.3 Chronic kidney disease, stage 3 (moderate); E11.22 Type 2 diabetes mellitus with diabetic chronic kidney disease; R26.81 Unsteadiness on feet; R29.6 Repeated falls; F32.9 Major depressive disorder, single episode, unspecified; E78.1 Pure hyperglyceridemia; E78.2 Mixed hyperlipidemia; D64.9 Anemia, unspecified; E11.65 Type 2 diabetes mellitus with hyperglycemia; Z66 Do not resuscitate; Z51.5 Encounter for palliative care; I12.9 Hypertensive chronic kidney disease with stage 1 through stage 4 chronic kidney disease, or unspecified chronic kidney disease; M16.10 Unilateral primary osteoarthritis, unspecified hip; M17.12 Unilateral primary osteoarthritis, left knee; R00.1 Bradycardia, unspecified; E87.8 Other disorders of electrolyte and fluid balance, not elsewhere classified; M71.22 Synovial cyst of popliteal space [Baker], left knee; Z79.4 Long term (current) use of insulin; Z98.51 Tubal ligation status; Z81.1 Family history of alcohol abuse and dependence; Z82.49 Family history of ischemic heart disease and other diseases of the circulatory system; Z84.89 Family history of other specified conditions; Z79.82 Long term (current) use of aspirin; Z79.84 Long term (current) use of oral hypoglycemic drugs; Z79.899 Other long term (current) drug therapy

== ENCOUNTER 2018-12-28 15:49 | Inpatient (IN) | payer MEDICARE, OTHER ==
[~2018-12-28] VITALS: Ht 160 cm; Wt 61.4 kg
--- NOTE | ~2018-12-28 | EKG ---
[place], [place] ELECTROCARDIOGRAM REPORT NAME: NABOR YOU UNIT #: [id number] ROOM: 416 DOCTOR: TASHI DRAFT REPORT BIRTHDATE: [birth year] [facility] Test Date: 2018-12-28 Test Time: 16:13:14 Pat Name: NABOR YOU Department: Room: 416 Gender: F Human Geography Faculty Member: Karmen Robert : 1950 Requested By: BONNY SCHAEFER PA-C Order Number: [id number] Reading MD: Kathleen Gonzalez MD Measurements Intervals [place] Rate: 70 P: 50 WI: 194 QRS: -31 QRSD: 90 T: 57 QT: 391 QTc: 422 Interpretive Statements Sinus rhythm Atrial premature complex Left axis deviation Compared to ECG 11/14/2018 17:13:43 Atrial premature complex(es) now present Left-axis deviation now present Left anterior fascicular block no longer present Electronically Signed On 12-30-2018 9:43:24 PST by Kathleen Gonzalez MD CM:EKGRPT:ELECTROCARDIOGRAM REPORT 1613 0943 BONNY SCHAEFER PA-C EPIPHANY DRAFT REPORT BONNY SCHAEFER PA-C
[~2018-12-28 15:49] MED LIST changes: +EFFEXOR XR37.5 M1 PO; -GLIPIZIDE ER10 M1 PO
[2018-12-28 16:28] LABS: BASO % 0.3 % (0.0-1.0); EOS % 0.3 % (1.0-4.0); HEMATOCRIT 38.5 % (37.0-47.0); HEMOGLOBIN 12.5 g/dl (12.0-16.0); LYMPH # 2.1 10*3/uL (1.3-4.4); LYMPH % 18.7 % (27.0-41.0); MEAN CELL VOLUME 85.7 fl (81.0-99.0); MEAN CORPUSCULAR HGB 27.8 pg (27.0-31.0); MEAN CORPUSCULAR HGB CONC 32.5 g/dl (33.0-37.0); MEAN PLATELET VOLUME 10.4 fl (9.6-12.3); MONO # 0.8 10*3/uL (0.1-1.0); MONO % 7.3 % (3.0-9.0); NEUT # 8.1 10*3/uL (2.3-7.9); NEUT % 72.8 % (47.0-73.0); PLATELET COUNT AUTOMATED 294 10*3/uL (130-400); RED BLOOD COUNT 4.49 10*6/uL (4.10-5.10); RED CELL DISTRI WIDTH 13.4 % (0-14.5); WHITE BLOOD COUNT 11.1 10*3/uL (4.8-10.8)
[2018-12-28 16:45] LABS: ALBUMIN 3.6 gm/dl (3.1-4.5); ALKALINE PHOSPHATASE 75 U/L (45-117); BUN 16 mg/dl (7-24); CHLORIDE 108 mmol/L (98-107); LIPASE 226 U/L (73-393); POTASSIUM 3.8 mmol/L (3.5-5.1); SGOT/AST 12 IU/L (3-35); SGPT/ALT 13 U/L (12-78); SODIUM 143 mmol/L (136-145); TOTAL PROTEIN 7.5 gm/dL (6.4-8.2)
[2018-12-28 16:46] LABS: TROPONIN I < 0.015 ng/ml (<0.045)
[2018-12-28 18:00] LABS: BILIRUBIN NEGATIVE (NEGATIVE); BLOOD TRACE-LYSED (NEGATIVE); CLARITY CLEAR (CLEAR); COLOR YELLOW (YELLOW); GLUCOSE NEGATIVE (NEGATIVE); KETONE NEGATIVE (NEGATIVE); LEUKO ESTERASE NEGATIVE (NEGATIVE); NITRITE NEGATIVE (NEGATIVE); PH 6.5 (5.0-9.0); UROBILINOGEN 0.2 E.U./dl (0.2-1.0)
[2018-12-28 18:07] LABS: BACTERIA 2+; WBC 0-2 wbc/hpf (0-5)
[2018-12-28 19:00] VITALS: BP 127/97
[2018-12-28 20:00] VITALS: BP 164/81
[2018-12-28] MEDS ORDERED: OZEMPIC0.25 MG/01 SQ (20:45)
[2018-12-29] VITALS: BP 147/78
[2018-12-29 07:02] LABS: BASO % 0.2 % (0.0-1.0); EOS # 0.1 10*3/uL (0.0-0.4); EOS % 0.5 % (1.0-4.0); HEMOGLOBIN 11.9 g/dl (12.0-16.0); LYMPH % 19.2 % (27.0-41.0); MEAN CELL VOLUME 87.2 fl (81.0-99.0); MEAN CORPUSCULAR HGB 27.3 pg (27.0-31.0); MEAN CORPUSCULAR HGB CONC 31.3 g/dl (33.0-37.0); MEAN PLATELET VOLUME 10.6 fl (9.6-12.3); MONO # 0.8 10*3/uL (0.1-1.0); MONO % 7.2 % (3.0-9.0); NEUT # 7.6 10*3/uL (2.3-7.9); NEUT % 72.6 % (47.0-73.0); PLATELET COUNT AUTOMATED 267 10*3/uL (130-400); RED BLOOD COUNT 4.36 10*6/uL (4.10-5.10); RED CELL DISTRI WIDTH 13.3 % (0-14.5); WHITE BLOOD COUNT 10.5 10*3/uL (4.8-10.8)
[2018-12-29 07:23] LABS: CHLORIDE 108 mmol/L (98-107); POTASSIUM 4.4 mmol/L (3.5-5.1); SODIUM 142 mmol/L (136-145)
[2018-12-29 07:42] LABS: BUN 15 mg/dl (7-24); CHOLESTEROL 193 mg/dL (<200); CREATININE 1.06 mg/dL (0.55-1.02); FREE T4 0.71 ng/dl (0.76-1.46); HDL CHOLESTEROL 35 mg/dl (40-60); LDL CHOLESTEROL 103 mg/dL (9-159); PHOSPHOROUS 3.7 mg/dL (2.5-4.9); TRIGLYCERIDES 274 mg/dl (<150); VLDL CHOLESTEROL 55 mg/dL (6-40)
[2018-12-29 08:00] VITALS: BP 142/78
[2018-12-29 12:00] VITALS: BP 166/70
[2018-12-29] MEDS ORDERED: ZOFRAN4 MG SL (14:22)
== END 2018-12-29 16:00 | disposition home or self-care (01) | DRG 683 ==
LOC: ED 15:49 → EDHOLD 18:16 → 4E 18:16
PROVIDERS: Internal Medicine; Physician Assistant; ADMIT Internal Medicine
DX: N17.0 Acute kidney failure with tubular necrosis (principal); I67.82 Cerebral ischemia; E86.0 Dehydration; R26.81 Unsteadiness on feet; E87.8 Other disorders of electrolyte and fluid balance, not elsewhere classified; R79.89 Other specified abnormal findings of blood chemistry; D72.810 Lymphocytopenia; R82.71 Bacteriuria; R31.9 Hematuria, unspecified; D64.9 Anemia, unspecified; R80.9 Proteinuria, unspecified; E11.22 Type 2 diabetes mellitus with diabetic chronic kidney disease; I12.9 Hypertensive chronic kidney disease with stage 1 through stage 4 chronic kidney disease, or unspecified chronic kidney disease; N18.9 Chronic kidney disease, unspecified; K57.90 Diverticulosis of intestine, part unspecified, without perforation or abscess without bleeding; K80.20 Calculus of gallbladder without cholecystitis without obstruction; M48.061 Spinal stenosis, lumbar region without neurogenic claudication; Z66 Do not resuscitate; Z51.5 Encounter for palliative care; R11.2 Nausea with vomiting, unspecified; M17.12 Unilateral primary osteoarthritis, left knee; F32.9 Major depressive disorder, single episode, unspecified; H91.90 Unspecified hearing loss, unspecified ear; Z98.51 Tubal ligation status; Z81.1 Family history of alcohol abuse and dependence; Z82.49 Family history of ischemic heart disease and other diseases of the circulatory system; Z91.81 History of falling; Z79.82 Long term (current) use of aspirin; Z79.899 Other long term (current) drug therapy; Z79.84 Long term (current) use of oral hypoglycemic drugs; Z87.11 Personal history of peptic ulcer disease

== ENCOUNTER → 2019-02-02 | Outpatient (CLI) | payer MEDICARE, OTHER ==
[~2019-02-02] MED LIST changes: +EFFEXOR XR37.5 MG PO; +HYDROCODONE-AC1 EAC1 PO; +Humalog SQ; +K-PHOS500 MG PO; +LISINOPRIL10 M1 PO; +MAGNESIUM OXID400 MG PO; +OZEMPIC0.25 MG/01 SQ; +OZEMPIC1 MG/0.75 SQ; +PRAVACHOL80 M1 PO; +SYNTHROID25 MCG PO; +TAMIFLU 75MG CA75 MG PO; +TRESIBA FL200 UNIT/1 SQ; +TRESIBA100 UNIT/1 SQ; +VENLAFAXINE H37.5 M2 PO; +VITAMIN D32000 UNI1 PO; +ZOFRAN4 MG SL
[2019-02-02 09:27] LABS: HEMOGLOBIN 12.5 g/dl (12.0-16.0); MEAN CELL VOLUME 86.9 fl (81.0-99.0); MEAN CORPUSCULAR HGB 27.8 pg (27.0-31.0); MEAN CORPUSCULAR HGB CONC 32.1 g/dl (33.0-37.0); MEAN PLATELET VOLUME 10.7 fl (9.6-12.3); RED BLOOD COUNT 4.49 10*6/uL (4.10-5.10); RED CELL DISTRI WIDTH 13.5 % (0-14.5); WHITE BLOOD COUNT 8.9 10*3/uL (4.8-10.8)
[2019-02-02 09:35] LABS: ALBUMIN 3.6 gm/dl (3.1-4.5); CREATININE 1.49 mg/dL (0.55-1.02); FREE T4 0.71 ng/dl (0.76-1.46); POTASSIUM 4.4 mmol/L (3.5-5.1)
[2019-02-02 09:40] LABS: THYROID STIM HORMONE (HS) 5.58 uIU/ml (0.358-4.75)
== END | disposition home or self-care (01) ==
LOC: LAB 08:38
PROVIDERS: Registered Nurse Flight
DX: E11.65 Type 2 diabetes mellitus with hyperglycemia (principal); E03.9 Hypothyroidism, unspecified; E78.5 Hyperlipidemia, unspecified

== ENCOUNTER 2019-02-17 08:31 | Inpatient (IN) | payer MEDICARE, OTHER ==
[~2019-02-17] VITALS: Ht 160 cm; Wt 60.9 kg
--- NOTE | ~2019-02-17 | EKG ---
[place], [place] ELECTROCARDIOGRAM REPORT NAME: NABOR YOU UNIT #: [id number] ROOM: 406 DOCTOR: TASHI DRAFT REPORT BIRTHDATE: [address] [facility] Test Date: 2019-02-17 Test Time: 09:14:30 Pat Name: NABOR YOU Department: Room: 406 Gender: F Assistant Cross Country Coach: Amira Mcallister : 1950 Requested By: MARGARITA FISH Order Number: [id number] Reading MD: Abebe Olmedo MD Measurements Intervals [place] Rate: 83 P: 31 [place]: 163 QRS: -42 QRSD: 89 T: 26 QT: 345 QTc: 406 Interpretive Statements Sinus rhythm Atrial premature complex Left anterior fascicular block Low voltage, precordial leads Abnormal R-wave progression, late transition Baseline wander in lead(s) V4 Compared to ECG 12/28/2018 16:13:14 Left anterior fascicular block now present Low QRS voltage now present Left-axis deviation no longer present Electronically Signed On 02-17-2019 13:51:57 PDT by Abebe Olmedo MD CM:EKGRPT:ELECTROCARDIOGRAM REPORT 0914 1351 MARGARITA GIRALDO DRAFT REPORT MARGARITA FISH DO
[~2019-02-17 08:31] MED LIST changes: -EFFEXOR XR37.5 MG PO; -HYDROCODONE-AC1 EAC1 PO; -Humalog SQ; -K-PHOS500 MG PO; -LISINOPRIL10 M1 PO; -MAGNESIUM OXID400 MG PO; -OZEMPIC1 MG/0.75 SQ; -PRAVACHOL80 M1 PO; -SYNTHROID25 MCG PO; -TAMIFLU 75MG CA75 MG PO; -TRESIBA FL200 UNIT/1 SQ; -TRESIBA100 UNIT/1 SQ; -VENLAFAXINE H37.5 M2 PO; -VITAMIN D32000 UNI1 PO
[2019-02-17 08:37] VITALS: BP 128/63
[2019-02-17 09:22] LABS: BASO % 0.1 % (0.0-1.0); EOS # 0.1 10*3/uL (0.0-0.4); EOS % 0.8 % (1.0-4.0); HEMATOCRIT 34.4 % (37.0-47.0); HEMOGLOBIN 10.7 g/dl (12.0-16.0); LYMPH # 0.5 10*3/uL (1.3-4.4); LYMPH % 6.8 % (27.0-41.0); MEAN CELL VOLUME 87.3 fl (81.0-99.0); MEAN CORPUSCULAR HGB 27.2 pg (27.0-31.0); MEAN CORPUSCULAR HGB CONC 31.1 g/dl (33.0-37.0); MEAN PLATELET VOLUME 10.7 fl (9.6-12.3); MONO # 0.8 10*3/uL (0.1-1.0); MONO % 11.3 % (3.0-9.0); NEUT # 5.9 10*3/uL (2.3-7.9); NEUT % 80.2 % (47.0-73.0); PLATELET COUNT AUTOMATED 205 10*3/uL (130-400); RED BLOOD COUNT 3.94 10*6/uL (4.10-5.10); RED CELL DISTRI WIDTH 14.2 % (0-14.5); WHITE BLOOD COUNT 7.4 10*3/uL (4.8-10.8)
[2019-02-17 09:32] LABS: ACT PARTIAL THROMBO TIME 24.1 SECONDS (20.8-31.5)
[2019-02-17 09:48] LABS: ALBUMIN 3.2 gm/dl (3.1-4.5); ALKALINE PHOSPHATASE 69 U/L (45-117); BUN 15 mg/dl (7-24); CHLORIDE 106 mmol/L (98-107); CREATININE 1.56 mg/dL (0.55-1.02); LIPASE 141 U/L (73-393); PHOSPHOROUS 2.2 mg/dL (2.5-4.9); SGOT/AST 12 IU/L (3-35); SGPT/ALT 15 U/L (12-78); SODIUM 138 mmol/L (136-145); TOTAL PROTEIN 6.9 gm/dL (6.4-8.2)
[2019-02-17 09:51] LABS: TROPONIN I < 0.015 ng/ml (<0.045)
[2019-02-17 10:12] LABS: BILIRUBIN NEGATIVE (NEGATIVE); BLOOD NEGATIVE (NEGATIVE); CLARITY CLEAR (CLEAR); COLOR YELLOW (YELLOW); GLUCOSE NEGATIVE (NEGATIVE); KETONE NEGATIVE (NEGATIVE); LEUKO ESTERASE NEGATIVE (NEGATIVE); NITRITE NEGATIVE (NEGATIVE); UROBILINOGEN 0.2 E.U./dl (0.2-1.0)
[2019-02-17 10:23] VITALS: BP 132/68
[2019-02-17 11:09] LABS: BACTERIA TRACE; WBC 0-2 wbc/hpf (0-5)
[2019-02-17 11:25] VITALS: BP 128/62
[2019-02-17 12:00] VITALS: BP 99/78
[2019-02-17] MEDS ORDERED: EFFEXOR XR37.5 MG PO (12:38)
[2019-02-17] MEDS ORDERED: PRAVACHOL80 M1 PO (12:39)
[2019-02-17] MEDS ORDERED: SYNTHROID25 MCG PO (12:39)
[2019-02-17] MEDS ORDERED: TRESIBA100 UNIT/1 SQ (12:42)
[2019-02-17] MEDS ORDERED: VENLAFAXINE H37.5 M2 PO (12:44)
[2019-02-17 16:00] VITALS: BP 124/62
[2019-02-17 20:00] VITALS: BP 147/78
[2019-02-18] VITALS: BP 100/81
[2019-02-18 06:30] LABS: BASO % 0.2 % (0.0-1.0); EOS % 0.4 % (1.0-4.0); HEMATOCRIT 36.6 % (37.0-47.0); HEMOGLOBIN 11.4 g/dl (12.0-16.0); LYMPH # 1.1 10*3/uL (1.3-4.4); LYMPH % 20.3 % (27.0-41.0); MEAN CELL VOLUME 86.7 fl (81.0-99.0); MEAN CORPUSCULAR HGB CONC 31.1 g/dl (33.0-37.0); MEAN PLATELET VOLUME 10.7 fl (9.6-12.3); MONO # 0.6 10*3/uL (0.1-1.0); MONO % 12.2 % (3.0-9.0); NEUT # 3.5 10*3/uL (2.3-7.9); NEUT % 66.5 % (47.0-73.0); PLATELET COUNT AUTOMATED 197 10*3/uL (130-400); RED BLOOD COUNT 4.22 10*6/uL (4.10-5.10); RED CELL DISTRI WIDTH 14.6 % (0-14.5); WHITE BLOOD COUNT 5.2 10*3/uL (4.8-10.8)
[2019-02-18 07:05] LABS: ALBUMIN 2.9 gm/dl (3.1-4.5); CREATININE 1.38 mg/dL (0.55-1.02); POTASSIUM 4.5 mmol/L (3.5-5.1); TOTAL PROTEIN 6.6 gm/dL (6.4-8.2)
[2019-02-18 07:11] LABS: FREE T4 0.81 ng/dl (0.76-1.46)
[2019-02-18 07:14] LABS: THYROID STIM HORMONE (HS) 1.68 uIU/ml (0.358-4.75)
[2019-02-18 07:42] LABS: VITAMIN D, 25-HYDROXY 29.5 ng/mL (30-100)
[2019-02-18 08:00] VITALS: BP 130/59
[2019-02-18 12:00] VITALS: BP 155/55
[2019-02-18 16:00] VITALS: BP 167/74
[2019-02-18 20:00] VITALS: BP 132/58; BP 175/60
[2019-02-19] VITALS: BP 132/56
[2019-02-19 06:16] LABS: BASO % 0.2 % (0.0-1.0); EOS % 0.7 % (1.0-4.0); HEMATOCRIT 32.9 % (37.0-47.0); HEMOGLOBIN 10.6 g/dl (12.0-16.0); LYMPH # 1.4 10*3/uL (1.3-4.4); LYMPH % 33.2 % (27.0-41.0); MEAN CELL VOLUME 86.1 fl (81.0-99.0); MEAN CORPUSCULAR HGB 27.7 pg (27.0-31.0); MEAN CORPUSCULAR HGB CONC 32.2 g/dl (33.0-37.0); MONO # 0.5 10*3/uL (0.1-1.0); MONO % 11.8 % (3.0-9.0); NEUT # 2.3 10*3/uL (2.3-7.9); NEUT % 53.6 % (47.0-73.0); PLATELET COUNT AUTOMATED 186 10*3/uL (130-400); RED BLOOD COUNT 3.82 10*6/uL (4.10-5.10); RED CELL DISTRI WIDTH 14.5 % (0-14.5); WHITE BLOOD COUNT 4.2 10*3/uL (4.8-10.8)
[2019-02-19 06:41] LABS: CREATININE 1.42 mg/dL (0.55-1.02); PHOSPHOROUS 3.9 mg/dL (2.5-4.9); POTASSIUM 4.4 mmol/L (3.5-5.1)
[2019-02-19 08:00] VITALS: BP 99/64
[2019-02-19 12:00] VITALS: BP 113/67
[2019-02-19 16:00] VITALS: BP 147/86
[2019-02-20] VITALS: BP 131/70
[2019-02-20 06:40] LABS: BASO % 0.2 % (0.0-1.0); EOS # 0.1 10*3/uL (0.0-0.4); EOS % 1.8 % (1.0-4.0); HEMATOCRIT 33.6 % (37.0-47.0); HEMOGLOBIN 10.6 g/dl (12.0-16.0); LYMPH # 1.9 10*3/uL (1.3-4.4); LYMPH % 42.1 % (27.0-41.0); MEAN CELL VOLUME 86.8 fl (81.0-99.0); MEAN CORPUSCULAR HGB 27.4 pg (27.0-31.0); MEAN CORPUSCULAR HGB CONC 31.5 g/dl (33.0-37.0); MEAN PLATELET VOLUME 10.9 fl (9.6-12.3); MONO # 0.4 10*3/uL (0.1-1.0); MONO % 9.6 % (3.0-9.0); NEUT # 2.1 10*3/uL (2.3-7.9); NEUT % 46.1 % (47.0-73.0); PLATELET COUNT AUTOMATED 196 10*3/uL (130-400); RED BLOOD COUNT 3.87 10*6/uL (4.10-5.10); RED CELL DISTRI WIDTH 14.1 % (0-14.5); WHITE BLOOD COUNT 4.6 10*3/uL (4.8-10.8)
[2019-02-20 07:11] LABS: POTASSIUM 4.4 mmol/L (3.5-5.1)
[2019-02-20 07:22] LABS: CREATININE 1.44 mg/dL (0.55-1.02)
[2019-02-20 08:00] VITALS: BP 127/68
[2019-02-20] MEDS ORDERED: VITAMIN D32000 UNI1 PO (10:06)
[2019-02-20] MEDS ORDERED: TAMIFLU 75MG CA75 MG PO (10:06)
== END 2019-02-20 11:42 | disposition home or self-care (01) | DRG 884 ==
LOC: ED → 4E 11:36 → EDHOLD 11:36 → 4E 11:43
PROVIDERS: Emergency Medicine; Internal Medicine; ADMIT Internal Medicine
DX: R54 Age-related physical debility (principal); I67.82 Cerebral ischemia; E44.0 Moderate protein-calorie malnutrition; E87.2 Acidosis; E86.0 Dehydration; R79.82 Elevated C-reactive protein (CRP); R79.89 Other specified abnormal findings of blood chemistry; E83.39 Other disorders of phosphorus metabolism; M17.12 Unilateral primary osteoarthritis, left knee; M48.061 Spinal stenosis, lumbar region without neurogenic claudication; R26.2 Difficulty in walking, not elsewhere classified; K27.9 Peptic ulcer, site unspecified, unspecified as acute or chronic, without hemorrhage or perforation; F32.9 Major depressive disorder, single episode, unspecified; E11.649 Type 2 diabetes mellitus with hypoglycemia without coma; E87.8 Other disorders of electrolyte and fluid balance, not elsewhere classified; J10.1 Influenza due to other identified influenza virus with other respiratory manifestations; I95.9 Hypotension, unspecified; D72.819 Decreased white blood cell count, unspecified; E11.65 Type 2 diabetes mellitus with hyperglycemia; K57.90 Diverticulosis of intestine, part unspecified, without perforation or abscess without bleeding; E03.9 Hypothyroidism, unspecified; I12.9 Hypertensive chronic kidney disease with stage 1 through stage 4 chronic kidney disease, or unspecified chronic kidney disease; E11.22 Type 2 diabetes mellitus with diabetic chronic kidney disease; N18.3 Chronic kidney disease, stage 3 (moderate); H91.90 Unspecified hearing loss, unspecified ear; R82.71 Bacteriuria; I10 Essential (primary) hypertension; D64.9 Anemia, unspecified; Z79.4 Long term (current) use of insulin; W18.30XD Fall on same level, unspecified, subsequent encounter; Z98.51 Tubal ligation status; Z81.1 Family history of alcohol abuse and dependence; Z82.49 Family history of ischemic heart disease and other diseases of the circulatory system; Z79.82 Long term (current) use of aspirin; Z79.899 Other long term (current) drug therapy; Z79.84 Long term (current) use of oral hypoglycemic drugs; Z68.23 Body mass index [BMI] 23.0-23.9, adult

== ENCOUNTER → 2019-02-23 | Outpatient (CLI) | payer MEDICARE, OTHER ==
[~2019-02-23] MED LIST changes: +EFFEXOR XR37.5 MG PO; +HYDROCODONE-AC1 EAC1 PO; +Humalog SQ; +K-PHOS500 MG PO; +LISINOPRIL10 M1 PO; +MAGNESIUM OXID400 MG PO; +OZEMPIC1 MG/0.75 SQ; +PRAVACHOL80 M1 PO; +SYNTHROID25 MCG PO; +TAMIFLU 75MG CA75 MG PO; +TRESIBA FL200 UNIT/1 SQ; +TRESIBA100 UNIT/1 SQ; +VENLAFAXINE H37.5 M2 PO; +VITAMIN D32000 UNI1 PO
[2019-02-23 09:25] LABS: BASO % 0.3 % (0.0-1.0); EOS % 0.6 % (1.0-4.0); HEMATOCRIT 38.2 % (37.0-47.0); HEMOGLOBIN 11.9 g/dl (12.0-16.0); LYMPH # 2.7 10*3/uL (1.3-4.4); LYMPH % 37.8 % (27.0-41.0); MEAN CELL VOLUME 86.4 fl (81.0-99.0); MEAN CORPUSCULAR HGB 26.9 pg (27.0-31.0); MEAN CORPUSCULAR HGB CONC 31.2 g/dl (33.0-37.0); MEAN PLATELET VOLUME 10.6 fl (9.6-12.3); MONO # 0.6 10*3/uL (0.1-1.0); MONO % 8.5 % (3.0-9.0); NEUT # 3.7 10*3/uL (2.3-7.9); NEUT % 52.4 % (47.0-73.0); PLATELET COUNT AUTOMATED 287 10*3/uL (130-400); RED BLOOD COUNT 4.42 10*6/uL (4.10-5.10); RED CELL DISTRI WIDTH 13.9 % (0-14.5); WHITE BLOOD COUNT 7.1 10*3/uL (4.8-10.8)
[2019-02-23 09:47] LABS: ALBUMIN 3.3 gm/dl (3.1-4.5); CREATININE 1.42 mg/dL (0.55-1.02); POTASSIUM 4.3 mmol/L (3.5-5.1); TOTAL PROTEIN 7.6 gm/dL (6.4-8.2)
[2019-02-23 09:56] LABS: THYROID STIM HORMONE (HS) 3.59 uIU/ml (0.358-4.75)
== END | disposition home or self-care (01) ==
LOC: LAB 09:01
PROVIDERS: Registered Nurse Flight
DX: E11.65 Type 2 diabetes mellitus with hyperglycemia (principal); E78.5 Hyperlipidemia, unspecified; E03.9 Hypothyroidism, unspecified

== ENCOUNTER → 2019-03-17 | Outpatient (CLI) | payer MEDICARE, OTHER ==
[2019-03-17 11:03] LABS: HEMATOCRIT 36.8 % (37.0-47.0); HEMOGLOBIN 11.8 g/dl (12.0-16.0)
[2019-03-17 11:14] LABS: BILIRUBIN NEGATIVE (NEGATIVE); BLOOD NEGATIVE (NEGATIVE); CLARITY SL CLOUDY (CLEAR); COLOR YELLOW (YELLOW); GLUCOSE 3+ (NEGATIVE); KETONE NEGATIVE (NEGATIVE); LEUKO ESTERASE 1+ (NEGATIVE); NITRITE NEGATIVE (NEGATIVE); SPECIFIC GRAVITY 1.015 (1.005-1.030); UROBILINOGEN 0.2 E.U./dl (0.2-1.0)
[2019-03-17 11:27] LABS: BACTERIA 4+; EPITHELIAL CELLS 35-40; WBC 21-30 wbc/hpf (0-5)
[2019-03-17 11:34] LABS: CREATININE 1.45 mg/dL (0.55-1.02); PHOSPHOROUS 2.5 mg/dL (2.5-4.9); POTASSIUM 4.1 mmol/L (3.5-5.1)
[2019-03-17 11:55] LABS: PTH INTACT 33.5 pg/mL (18.5-88.0); VITAMIN D, 25-HYDROXY 25.9 ng/mL (30-100)
[2019-03-18 07:04] LABS: MICRO ALBUMIN/CRE RATIO 256.4 (0.0-30.0)
== END | disposition home or self-care (01) ==
LOC: LAB 10:28 → US 11:00
PROVIDERS: Internal Medicine Nephrology
DX: I12.9 Hypertensive chronic kidney disease with stage 1 through stage 4 chronic kidney disease, or unspecified chronic kidney disease (principal); N18.4 Chronic kidney disease, stage 4 (severe); E55.9 Vitamin D deficiency, unspecified; R79.89 Other specified abnormal findings of blood chemistry; N28.1 Cyst of kidney, acquired

== ENCOUNTER → 2019-04-14 | Outpatient (CLI) | payer MEDICARE, OTHER ==
[~2019-04-14] MED LIST changes: +CYPROHEPTADINE H4 M1 PO; +DIVALPROEX SOD250 MG PO; +NOVOLOG100 UNIT/1 SC; +PROTONIX TR40 M1 PO; +RIVASTIGMINE1 EACH T; +TYLENOL WITH C1 EACH PO; -VENLAFAXINE H37.5 M2 PO; +VENLAFAXINE HYD75 MG PO
[2019-04-14 14:03] LABS: BILIRUBIN NEGATIVE (NEGATIVE); BLOOD TRACE-INTACT (NEGATIVE); CLARITY CLOUDY (CLEAR); COLOR YELLOW (YELLOW); GLUCOSE NEGATIVE (NEGATIVE); KETONE NEGATIVE (NEGATIVE); LEUKO ESTERASE 3+ (NEGATIVE); NITRITE NEGATIVE (NEGATIVE); PH 5.5 (5.0-9.0); SPECIFIC GRAVITY <= 1.005 (1.005-1.030); UROBILINOGEN 0.2 E.U./dl (0.2-1.0)
[2019-04-14 14:12] LABS: URINE CREATININE RANDOM 66.2 mg/dL
[2019-04-14 14:29] LABS: BACTERIA 2+; EPITHELIAL CELLS TNTC; WBC TNTC wbc/hpf (0-5)
[2019-04-14 14:43] LABS: CREATININE 1.39 mg/dL (0.55-1.02); POTASSIUM 4.4 mmol/L (3.5-5.1)
[2019-04-15 09:06] LABS: CREATININE,URINE 59.1 mg/dL (Not Estab.); MICRO ALBUMIN/CRE RATIO 303.6 (0.0-30.0)
== END | disposition home or self-care (01) ==
LOC: LAB 13:33
PROVIDERS: Internal Medicine Nephrology
DX: N18.3 Chronic kidney disease, stage 3 (moderate) (principal); Z79.899 Other long term (current) drug therapy

== ENCOUNTER 2019-07-07 20:37 | Inpatient (IN) | payer MEDICARE, OTHER ==
[~2019-07-07] VITALS: Ht 160 cm; Wt 53.1 kg
--- NOTE | ~2019-07-07 | EKG ---
[place], [place] ELECTROCARDIOGRAM REPORT NAME: NABOR YOU UNIT #: [id number] ROOM: 524 DOCTOR: TASHI DRAFT REPORT BIRTHDATE: [birth year] [facility] Test Date: 2019-07-07 Test Time: 21:32:42 Pat Name: NABOR YOU Department: ER Room: 524 Gender: F Wool Sorter: : 1950 Requested By: ADAM HOWELL Order Number: [id number] Reading MD: Kathleen Gonzalez MD Measurements Intervals [place] Rate: 92 P: 34 NE: 162 QRS: -45 QRSD: 93 T: 72 QT: 352 QTc: 436 Interpretive Statements Sinus rhythm Left anterior fascicular block Abnormal R-wave progression, early transition Left ventricular hypertrophy Compared to ECG 02/17/2019 09:14:30 Left ventricular hypertrophy now present Atrial premature complex(es) no longer present Electronically Signed On 07-14-2019 14:13:14 PDT by Kathleen Gonzalez MD CM:EKGRPT:ELECTROCARDIOGRAM REPORT 31 1413 ADAM AKINS DRAFT REPORT ADAM HOWELL MD
--- NOTE | ~2019-07-07 | CON ---
[place], [place] REPORT OF CONSULTATION NAME: NABOR YOU UNIT #: [id number] ROOM: 524 DOCTOR: PHD GRACIELA HERRMANN BIRTHDATE: [birth year] DOS: 07/10/2019 HISTORY OF PRESENT ILLNESS: The patient is a 69-year-old female referred by the hospitalist for competency evaluation. At the present time, the patient is on the 5th floor at [facility]. She presented to the ED with weakness. She lives at home. She is . The patient is a poor historian. There is no indication of drugs, tobacco or illegal drug use. PAST MEDICAL HISTORY: Age-related physical debility, ambulatory dysfunction, Doherty's cyst of knee, cholelithiasis, chronic cerebral ischemia, chronic kidney disease stage 3, depression, diverticulosis, essential hypertension, falls, general weakness, hypothyroidism, mild protein-calorie malnutrition, normal pressure hydrocephalus resolved, normocytic anemia, osteoarthritis, peptic ulcer disease, physical deconditioning, presbycusis of both ears, proteinuria, spinal stenosis, type 2 diabetes, unsteady gait, vitamin D deficiency. MEDICATIONS: Synthroid, K-Phos, Humalog, D10W, Lovenox, Mag-Ox 400, vitamin D, Effexor, aspirin, Zocor, Reglan, Protonix, Dulcolax, milk of magnesia, Zofran, Tylenol, Restoril, morphine sulfate, [place] 5/325. The patient was lying comfortably, in no apparent distress. She was awake, alert and oriented to person and place. She gave the date as Wednesday "the third " . She could not name the president or any current events. She could not name any of her medical conditions or medication she takes. Mood was depressed with passive suicidal ideation. She denied homicidal ideation and active suicidal thoughts. She cites social withdrawal as a factor in her depression. Affect was blunted. Speech and language were generally within normal limits conversationally. The patient is hard of hearing and occasionally responded to questions inappropriately, but once repeated, she provided an appropriate response. The patient appeared confused at times with memory gaps. There is no evidence of hallucinations or delusions. In my opinion, the patient is not competent to make informed healthcare decisions at this time. The patient is a [place] resident. I completed portions of a [place] healthcare surrogate paperwork and spoke with case management about working with the family to designate a healthcare surrogate, the patient's sister well may be a good option. DIAGNOSIS: Unspecified neurocognitive disorder, unspecified depressive disorder. RECOMMENDATIONS: In my opinion, the patient is not competent to make informed healthcare decisions, [place] healthcare surrogacy paperwork is in the process of being completed for this patient. Thank you very much for this consult. [place], [place] REPORT OF CONSULTATION NAME: NABOR YOU UNIT #: [id number] ROOM: 524 DOCTOR: CHERIE, PHD GRACIELA BIRTHDATE: [birth year] Jeanna Herrmann, PhD CM:CONSTR:REPORT OF CONSULTATION 1222 07/11/19 0344 interface
[~2019-07-07 20:37] MED LIST changes: -CYPROHEPTADINE H4 M1 PO; -DIVALPROEX SOD250 MG PO; -HYDROCODONE-AC1 EAC1 PO; -Humalog SQ; -K-PHOS500 MG PO; -LISINOPRIL10 M1 PO; -MAGNESIUM OXID400 MG PO; -NOVOLOG100 UNIT/1 SC; -OZEMPIC1 MG/0.75 SQ; -RIVASTIGMINE1 EACH T; -TRESIBA FL200 UNIT/1 SQ; -TYLENOL WITH C1 EACH PO
[2019-07-07 20:43] VITALS: BP 161/83
[2019-07-07] MEDS ORDERED: MAGNESIUM OXID400 MG PO (20:47)
[2019-07-07 21:23] LABS: BASO % 0.1 % (0.0-1.0); HEMATOCRIT 38.4 % (37.0-47.0); HEMOGLOBIN 12.7 g/dl (12.0-16.0); LYMPH % 5.9 % (27.0-41.0); MEAN CELL VOLUME 84.8 fl (81.0-99.0); MEAN CORPUSCULAR HGB CONC 33.1 g/dl (33.0-37.0); MEAN PLATELET VOLUME 11.8 fl (9.6-12.3); MONO # 1.1 10*3/uL (0.1-1.0); MONO % 6.5 % (3.0-9.0); NEUT # 15.2 10*3/uL (2.3-7.9); NEUT % 86.9 % (47.0-73.0); PLATELET COUNT AUTOMATED 281 10*3/uL (130-400); RED BLOOD COUNT 4.53 10*6/uL (4.10-5.10); RED CELL DISTRI WIDTH 13.7 % (0-14.5); WHITE BLOOD COUNT 17.5 10*3/uL (4.8-10.8)
[2019-07-07 21:34] LABS: ACT PARTIAL THROMBO TIME 23.9 SECONDS (20.0-32.1); INTERNATIONAL NORM RATIO 0.9 (2.0-3.5)
[2019-07-07 21:39] LABS: BILIRUBIN NEGATIVE (NEGATIVE); BLOOD 2+ (NEGATIVE); CLARITY SL CLOUDY (CLEAR); COLOR YELLOW (YELLOW); GLUCOSE 3+ (NEGATIVE); KETONE 2+ (NEGATIVE); LEUKO ESTERASE NEGATIVE (NEGATIVE); NITRITE NEGATIVE (NEGATIVE); SPECIFIC GRAVITY 1.015 (1.005-1.030); UROBILINOGEN 0.2 E.U./dl (0.2-1.0)
[2019-07-07 21:41] LABS: ALBUMIN 3.6 gm/dl (3.1-4.5); CREATININE 1.85 mg/dL (0.55-1.02); POTASSIUM 5.2 mmol/L (3.5-5.1); TOTAL PROTEIN 7.5 gm/dL (6.4-8.2); TROPONIN I 0.018 ng/ml (<0.045)
[2019-07-07 21:47] LABS: BACTERIA 1+; RBC 0-2 rbc/hpf (0-2); WBC 0-2 wbc/hpf (0-5)
[2019-07-07 22:49] VITALS: BP 168/95
[2019-07-07 23:00] VITALS: BP 156/93
[2019-07-08 02:12] LABS: CREATININE 1.46 mg/dL (0.55-1.02)
[2019-07-08 02:21] LABS: POTASSIUM 3.7 mmol/L (3.5-5.1)
[2019-07-08 04:00] VITALS: BP 147/88
[2019-07-08 06:23] LABS: CREATININE 1.17 mg/dL (0.55-1.02); POTASSIUM 3.6 mmol/L (3.5-5.1)
[2019-07-08 06:27] LABS: BASO % 0.1 % (0.0-1.0); EOS % 0.1 % (1.0-4.0); HEMATOCRIT 35.6 % (37.0-47.0); HEMOGLOBIN 11.8 g/dl (12.0-16.0); LYMPH # 1.5 10*3/uL (1.3-4.4); LYMPH % 9.6 % (27.0-41.0); MEAN CORPUSCULAR HGB 27.8 pg (27.0-31.0); MEAN CORPUSCULAR HGB CONC 33.1 g/dl (33.0-37.0); MEAN PLATELET VOLUME 11.3 fl (9.6-12.3); MONO % 6.6 % (3.0-9.0); NEUT # 12.7 10*3/uL (2.3-7.9); NEUT % 83.1 % (47.0-73.0); PLATELET COUNT AUTOMATED 228 10*3/uL (130-400); RED BLOOD COUNT 4.24 10*6/uL (4.10-5.10); RED CELL DISTRI WIDTH 13.7 % (0-14.5); WHITE BLOOD COUNT 15.3 10*3/uL (4.8-10.8)
[2019-07-08 06:43] LABS: PHOSPHOROUS 1.7 mg/dL (2.5-4.9); THYROID STIM HORMONE (HS) 1.42 uIU/ml (0.358-4.75)
[2019-07-08 06:53] LABS: INTERNATIONAL NORM RATIO 0.9 (2.0-3.5)
[2019-07-08 08:00] VITALS: BP 109/77
[2019-07-08 08:26] LABS: VITAMIN D, 25-HYDROXY 36.6 ng/mL (30-100)
[2019-07-08] MEDS ORDERED: TRESIBA FL200 UNIT/1 SQ (09:41)
[2019-07-08] MEDS ORDERED: OZEMPIC1 MG/0.75 SQ (09:42)
[2019-07-08 09:43] LABS: BUN 24 mg/dl (7-24); CHLORIDE 108 mmol/L (98-107); CREATININE 1.05 mg/dL (0.55-1.02); POTASSIUM 3.8 mmol/L (3.5-5.1); SODIUM 137 mmol/L (136-145)
[2019-07-08 12:00] VITALS: BP 122/74
[2019-07-08 16:00] VITALS: BP 130/79
[2019-07-08 20:00] VITALS: BP 139/74
[2019-07-09] VITALS: BP 144/69
[2019-07-09 04:00] VITALS: BP 138/62
[2019-07-09 05:07] LABS: CHLORIDE 112 mmol/L (98-107); CREATININE 1.02 mg/dL (0.55-1.02); PHOSPHOROUS 2.1 mg/dL (2.5-4.9); POTASSIUM 4.2 mmol/L (3.5-5.1); SODIUM 137 mmol/L (136-145)
[2019-07-09 05:17] LABS: BUN 11 mg/dl (7-24)
[2019-07-09 08:00] VITALS: BP 128/26
[2019-07-09 12:00] VITALS: BP 127/79
[2019-07-09 16:00] VITALS: BP 160/82
[2019-07-09 20:00] VITALS: BP 180/83
[2019-07-10] VITALS: BP 168/79
[2019-07-10 06:09] LABS: BASO % 0.3 % (0.0-1.0); EOS # 0.1 10*3/uL (0.0-0.4); HEMATOCRIT 36.1 % (37.0-47.0); HEMOGLOBIN 11.7 g/dl (12.0-16.0); LYMPH # 1.5 10*3/uL (1.3-4.4); LYMPH % 21.4 % (27.0-41.0); MEAN CELL VOLUME 84.1 fl (81.0-99.0); MEAN CORPUSCULAR HGB 27.3 pg (27.0-31.0); MEAN CORPUSCULAR HGB CONC 32.4 g/dl (33.0-37.0); MEAN PLATELET VOLUME 10.8 fl (9.6-12.3); MONO # 0.7 10*3/uL (0.1-1.0); MONO % 10.6 % (3.0-9.0); NEUT # 4.6 10*3/uL (2.3-7.9); NEUT % 66.3 % (47.0-73.0); PLATELET COUNT AUTOMATED 248 10*3/uL (130-400); RED BLOOD COUNT 4.29 10*6/uL (4.10-5.10); RED CELL DISTRI WIDTH 14.1 % (0-14.5)
[2019-07-10 06:37] LABS: BUN 11 mg/dl (7-24); CHLORIDE 105 mmol/L (98-107); CREATININE 0.98 mg/dL (0.55-1.02); POTASSIUM 4.2 mmol/L (3.5-5.1); SODIUM 135 mmol/L (136-145)
[2019-07-10 08:00] VITALS: BP 110/68
[2019-07-10 12:00] VITALS: BP 121/74
[2019-07-10 16:00] VITALS: BP 151/62
[2019-07-10 20:00] VITALS: BP 122/64
[2019-07-11] VITALS: BP 121/86
[2019-07-11 06:45] LABS: BASO % 0.3 % (0.0-1.0); EOS # 0.1 10*3/uL (0.0-0.4); EOS % 1.3 % (1.0-4.0); HEMATOCRIT 34.8 % (37.0-47.0); HEMOGLOBIN 11.5 g/dl (12.0-16.0); LYMPH # 1.7 10*3/uL (1.3-4.4); LYMPH % 26.1 % (27.0-41.0); MEAN CELL VOLUME 84.3 fl (81.0-99.0); MEAN CORPUSCULAR HGB 27.8 pg (27.0-31.0); MEAN PLATELET VOLUME 10.8 fl (9.6-12.3); MONO # 0.6 10*3/uL (0.1-1.0); MONO % 8.9 % (3.0-9.0); NEUT % 62.8 % (47.0-73.0); PLATELET COUNT AUTOMATED 241 10*3/uL (130-400); RED BLOOD COUNT 4.13 10*6/uL (4.10-5.10); RED CELL DISTRI WIDTH 13.8 % (0-14.5); WHITE BLOOD COUNT 6.4 10*3/uL (4.8-10.8)
[2019-07-11 07:15] LABS: ALBUMIN 2.7 gm/dl (3.1-4.5); ALKALINE PHOSPHATASE 67 U/L (45-117); BUN 11 mg/dl (7-24); CHLORIDE 104 mmol/L (98-107); CREATININE 1.02 mg/dL (0.55-1.02); PHOSPHOROUS 2.8 mg/dL (2.5-4.9); POTASSIUM 4.4 mmol/L (3.5-5.1); SGOT/AST 6 IU/L (3-35); SGPT/ALT 11 U/L (12-78); SODIUM 135 mmol/L (136-145); TOTAL PROTEIN 6.3 gm/dL (6.4-8.2)
[2019-07-11 08:00] VITALS: BP 142/71
[2019-07-11] MEDS ORDERED: HYDROCODONE-AC1 EAC1 PO (10:11)
[2019-07-11] MEDS ORDERED: Humalog SQ (10:11)
[2019-07-11] MEDS ORDERED: K-PHOS500 MG PO (10:11)
[2019-07-11] MEDS ORDERED: LISINOPRIL10 M1 PO (10:11)
[2019-07-11 12:00] VITALS: BP 148/69
[2019-07-21] MEDS ORDERED: FLAGYL500 MG PO (12:52)
[2019-07-21] MEDS ORDERED: HYDROCODONE-AC1 EAC1 PO (12:55)
== END 2019-07-11 14:03 | disposition other institution (70) | DRG 637 ==
LOC: ED 20:37 → 5E 22:11 → EDHOLD 22:11 → ICCU 22:30 → 5E 07-09 15:08
PROVIDERS: Emergency Medicine Emergency Medical Services; Internal Medicine; Registered Nurse; ADMIT Family Medicine
DX: E11.10 Type 2 diabetes mellitus with ketoacidosis without coma (principal); N17.0 Acute kidney failure with tubular necrosis; R65.11 Systemic inflammatory response syndrome (SIRS) of non-infectious origin with acute organ dysfunction; G93.41 Metabolic encephalopathy; E87.1 Hypo-osmolality and hyponatremia; E87.2 Acidosis; J98.11 Atelectasis; E44.1 Mild protein-calorie malnutrition; I67.82 Cerebral ischemia; F33.0 Major depressive disorder, recurrent, mild; M17.12 Unilateral primary osteoarthritis, left knee; K21.9 Gastro-esophageal reflux disease without esophagitis; E03.9 Hypothyroidism, unspecified; F03.90 Unspecified dementia, unspecified severity, without behavioral disturbance, psychotic disturbance, mood disturbance, and anxiety; E83.39 Other disorders of phosphorus metabolism; M48.061 Spinal stenosis, lumbar region without neurogenic claudication; E87.5 Hyperkalemia; R31.9 Hematuria, unspecified; R29.6 Repeated falls; R82.71 Bacteriuria; R41.9 Unspecified symptoms and signs involving cognitive functions and awareness; E86.0 Dehydration; E11.22 Type 2 diabetes mellitus with diabetic chronic kidney disease; H91.13 Presbycusis, bilateral; N18.3 Chronic kidney disease, stage 3 (moderate); I12.9 Hypertensive chronic kidney disease with stage 1 through stage 4 chronic kidney disease, or unspecified chronic kidney disease; K57.30 Diverticulosis of large intestine without perforation or abscess without bleeding; K80.20 Calculus of gallbladder without cholecystitis without obstruction; W18.30XA Fall on same level, unspecified, initial encounter; Y93.89 Activity, other specified; Y92.098 Other place in other non-institutional residence as the place of occurrence of the external cause; Y99.8 Other external cause status; Z79.4 Long term (current) use of insulin; Z87.11 Personal history of peptic ulcer disease; Z98.51 Tubal ligation status; Z81.1 Family history of alcohol abuse and dependence; Z82.49 Family history of ischemic heart disease and other diseases of the circulatory system; Z84.89 Family history of other specified conditions; Z79.82 Long term (current) use of aspirin; Z79.899 Other long term (current) drug therapy; Z68.20 Body mass index [BMI] 20.0-20.9, adult

== ENCOUNTER 2019-07-27 12:34 | Inpatient (IN) | payer MEDICARE, OTHER ==
[~2019-07-27] VITALS: Ht 160 cm; Wt 51.8 kg
--- NOTE | ~2019-07-27 | EKG ---
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
--- NOTE | ~2019-07-27 | EKG ---
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
--- NOTE | ~2019-07-27 | CON ---
[place], [place] [facility] CON[facility]ULTATION [id number] UN[facility] #: [id number] ROOM: 407 DOCTOR: PHD YAN HERRMANNHERINE BIRTHDATE: [birth year] DOS: 08/01/2019 HISTORY OF PRESENT ILLNESS: The patient is a 69-year-old female referred by the hospitalist with concerns for dementia. At the present time, the patient is on the 4th floor at [facility]. She presented to the ED from her skilled nursing due to a pulse ox of 70%. She was recently discharged from [facility] on 07/21/2019 after receiving treatment for UTI and ischemic colitis. She is a resident at [facility]. The patient is a poor historian. Per her medical record, she does not drink alcohol or use illegal drugs or smoke or use tobacco. PAST MEDICAL HISTORY: Doherty's cyst of knee, cholelithiasis, chronic cerebral ischemia, chronic kidney disease stage 3, chronic pain, dementia, depression, diabetic ketoacidosis, diverticulosis, essential hypertension, GERD, hypothyroidism, ischemic colitis, normal pressure hydrocephalus, osteoarthritis, peptic ulcer disease, physical deconditioning, presbycusis of both ears, spinal stenosis at the L4-L5 level, type 2 diabetes, and unsteady gait. MEDICATIONS: Lovenox, Periactin, Zestril, Lantus, Mag-Ox 400, vitamin D, Effexor, Protonix, Humalog, Synthroid, Reglan, Zocor, Tylenol, K-Phos, Dulcolax, Zofran, Cipro, codeine, [place] 5/325, and Restoril. MENTAL STATUS EXAMINATION: The patient was lying comfortably in bed, in no apparent distress. She was awake and responsive, although she did not provide any meaningful responses to my questions. The patient appeared irritable. There is no evidence of suicidal or homicidal ideation, plan or intent. She does not appear to be responding to internal stimuli. Insight and judgment appeared poor. DIAGNOSES: Unspecified neurocognitive disorder, unspecified depressive disorder. RECOMMENDATIONS: I consulted with Dr. Chow about the patient's medications. He suggested discontinuing the Restoril and starting Depakote 250 mg t.i.d. and Exelon 4.6 mg patch daily. Jeanna Herrmann PhD CM:CONSTR:REPORT OF CONSULTATION 1044 08/01/19 1141 interface
--- NOTE | ~2019-07-27 | EKG ---
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
[~2019-07-27 12:34] MED LIST changes: +HYDROCODONE-AC1 EAC1 PO; +Humalog SQ; +K-PHOS500 MG PO; +LISINOPRIL10 M1 PO; +MAGNESIUM OXID400 MG PO; +OZEMPIC1 MG/0.75 SQ; +TRESIBA FL200 UNIT/1 SQ
[2019-07-27 12:38] VITALS: BP 92/56
[2019-07-27 13:34] LABS: HEMATOCRIT 34.4 % (37.0-47.0); HEMOGLOBIN 11.1 g/dl (12.0-16.0); MEAN CELL VOLUME 84.5 fl (81.0-99.0); MEAN CORPUSCULAR HGB 27.3 pg (27.0-31.0); MEAN CORPUSCULAR HGB CONC 32.3 g/dl (33.0-37.0); MEAN PLATELET VOLUME 10.2 fl (9.6-12.3); PLATELET COUNT AUTOMATED 559 10*3/uL (130-400); RED BLOOD COUNT 4.07 10*6/uL (4.10-5.10); WHITE BLOOD COUNT 17.3 10*3/uL (4.8-10.8)
[2019-07-27 13:45] LABS: ACT PARTIAL THROMBO TIME 26.3 SECONDS (20.0-32.1); INTERNATIONAL NORM RATIO 1.1 (2.0-3.5)
[2019-07-27 13:51] LABS: ALBUMIN 2.8 gm/dl (3.1-4.5); CREATININE 2.32 mg/dL (0.55-1.02); TOTAL PROTEIN 7.1 gm/dL (6.4-8.2)
[2019-07-27 13:57] LABS: PLATELET SUFFICIENCY HIGH (NORMAL); TOTAL CELLS COUNTED 100 #CELLS; TOXIC GRANULATION SLIGHT; TROPONIN I 0.404 ng/ml (<0.045)
[2019-07-27 14:09] VITALS: BP 102/50
[2019-07-27 14:24] LABS: BILIRUBIN NEGATIVE (NEGATIVE); BLOOD NEGATIVE (NEGATIVE); CLARITY SL CLOUDY (CLEAR); COLOR YELLOW (YELLOW); GLUCOSE NEGATIVE (NEGATIVE); KETONE NEGATIVE (NEGATIVE); LEUKO ESTERASE 1+ (NEGATIVE); NITRITE NEGATIVE (NEGATIVE); PH 5.5 (5.0-9.0); UROBILINOGEN 0.2 E.U./dl (0.2-1.0)
[2019-07-27 14:41] LABS: BACTERIA 1+; WBC 21-30 wbc/hpf (0-5); YEAST 2+
[2019-07-27 15:35] VITALS: BP 105/80
[2019-07-27] MEDS ORDERED: CYPROHEPTADINE H4 M1 PO (16:20)
[2019-07-27] MEDS ORDERED: TYLENOL WITH C1 EACH PO (16:23)
[2019-07-27] MEDS ORDERED: NOVOLOG100 UNIT/1 SC (16:31)
[2019-07-27 20:00] VITALS: BP 139/82
[2019-07-28] VITALS: BP 125/65
[2019-07-28 06:27] LABS: BASO # 0.1 10*3/uL (0.0-0.1); BASO % 0.6 % (0.0-1.0); EOS % 0.3 % (1.0-4.0); HEMATOCRIT 31.4 % (37.0-47.0); HEMOGLOBIN 9.8 g/dl (12.0-16.0); LYMPH # 1.3 10*3/uL (1.3-4.4); LYMPH % 9.1 % (27.0-41.0); MEAN CELL VOLUME 85.1 fl (81.0-99.0); MEAN CORPUSCULAR HGB 26.6 pg (27.0-31.0); MEAN CORPUSCULAR HGB CONC 31.2 g/dl (33.0-37.0); MEAN PLATELET VOLUME 10.2 fl (9.6-12.3); MONO # 1.1 10*3/uL (0.1-1.0); MONO % 7.9 % (3.0-9.0); NEUT # 11.2 10*3/uL (2.3-7.9); NEUT % 81.4 % (47.0-73.0); PLATELET COUNT AUTOMATED 505 10*3/uL (130-400); RED BLOOD COUNT 3.69 10*6/uL (4.10-5.10); WHITE BLOOD COUNT 13.8 10*3/uL (4.8-10.8)
[2019-07-28 06:45] LABS: CREATININE 1.75 mg/dL (0.55-1.02); POTASSIUM 3.9 mmol/L (3.5-5.1)
[2019-07-28 06:55] LABS: INTERNATIONAL NORM RATIO 1.1 (2.0-3.5)
[2019-07-28 08:00] VITALS: BP 119/75
[2019-07-28 11:42] VITALS: BP 124/58
[2019-07-28 16:00] VITALS: BP 118/92
[2019-07-28 20:00] VITALS: BP 110/60
[2019-07-29] VITALS: BP 116/78
[2019-07-29 06:54] LABS: BASO # 0.1 10*3/uL (0.0-0.1); BASO % 0.8 % (0.0-1.0); EOS # 0.1 10*3/uL (0.0-0.4); EOS % 0.8 % (1.0-4.0); HEMATOCRIT 30.2 % (37.0-47.0); HEMOGLOBIN 9.3 g/dl (12.0-16.0); LYMPH # 1.6 10*3/uL (1.3-4.4); LYMPH % 17.6 % (27.0-41.0); MEAN CORPUSCULAR HGB 26.8 pg (27.0-31.0); MEAN CORPUSCULAR HGB CONC 30.8 g/dl (33.0-37.0); MONO % 10.8 % (3.0-9.0); NEUT # 6.4 10*3/uL (2.3-7.9); NEUT % 68.9 % (47.0-73.0); PLATELET COUNT AUTOMATED 487 10*3/uL (130-400); RED BLOOD COUNT 3.47 10*6/uL (4.10-5.10); RED CELL DISTRI WIDTH 14.3 % (0-14.5); WHITE BLOOD COUNT 9.3 10*3/uL (4.8-10.8)
[2019-07-29 07:08] LABS: CREATININE 1.28 mg/dL (0.55-1.02)
[2019-07-29 08:00] VITALS: BP 134/84
[2019-07-29 12:00] VITALS: BP 135/72
[2019-07-29 16:00] VITALS: BP 166/73
[2019-07-29 20:00] VITALS: BP 132/69
[2019-07-30] VITALS: BP 114/69
[2019-07-30 05:56] LABS: BUN 10 mg/dl (7-24); CHLORIDE 102 mmol/L (98-107); CREATININE 1.08 mg/dL (0.55-1.02); POTASSIUM 3.9 mmol/L (3.5-5.1); SODIUM 135 mmol/L (136-145)
[2019-07-30 06:06] LABS: BASO # 0.1 10*3/uL (0.0-0.1); BASO % 0.7 % (0.0-1.0); EOS # 0.1 10*3/uL (0.0-0.4); EOS % 0.9 % (1.0-4.0); HEMATOCRIT 28.7 % (37.0-47.0); LYMPH # 1.8 10*3/uL (1.3-4.4); LYMPH % 22.6 % (27.0-41.0); MEAN CELL VOLUME 86.2 fl (81.0-99.0); MEAN CORPUSCULAR HGB CONC 31.4 g/dl (33.0-37.0); MEAN PLATELET VOLUME 9.8 fl (9.6-12.3); MONO # 1.2 10*3/uL (0.1-1.0); MONO % 14.3 % (3.0-9.0); NEUT # 4.9 10*3/uL (2.3-7.9); NEUT % 60.8 % (47.0-73.0); PLATELET COUNT AUTOMATED 492 10*3/uL (130-400); RED BLOOD COUNT 3.33 10*6/uL (4.10-5.10); WHITE BLOOD COUNT 8.1 10*3/uL (4.8-10.8)
[2019-07-30 08:00] VITALS: BP 142/79
[2019-07-30 12:00] VITALS: BP 122/60
[2019-07-30 16:00] VITALS: BP 132/71
[2019-07-30 20:00] VITALS: BP 143/88
[2019-07-31] VITALS: BP 124/63
[2019-07-31 06:39] LABS: CREATININE 1.12 mg/dL (0.55-1.02); POTASSIUM 4.3 mmol/L (3.5-5.1)
[2019-07-31 06:41] LABS: BASO # 0.1 10*3/uL (0.0-0.1); BASO % 0.8 % (0.0-1.0); EOS # 0.1 10*3/uL (0.0-0.4); EOS % 1.1 % (1.0-4.0); HEMATOCRIT 27.8 % (37.0-47.0); HEMOGLOBIN 8.5 g/dl (12.0-16.0); LYMPH # 1.7 10*3/uL (1.3-4.4); LYMPH % 22.7 % (27.0-41.0); MEAN CELL VOLUME 86.9 fl (81.0-99.0); MEAN CORPUSCULAR HGB 26.6 pg (27.0-31.0); MEAN CORPUSCULAR HGB CONC 30.6 g/dl (33.0-37.0); MEAN PLATELET VOLUME 9.8 fl (9.6-12.3); MONO # 1.2 10*3/uL (0.1-1.0); MONO % 16.3 % (3.0-9.0); NEUT # 4.4 10*3/uL (2.3-7.9); NEUT % 57.9 % (47.0-73.0); PLATELET COUNT AUTOMATED 459 10*3/uL (130-400); RED CELL DISTRI WIDTH 13.7 % (0-14.5); WHITE BLOOD COUNT 7.6 10*3/uL (4.8-10.8)
[2019-07-31 08:00] VITALS: BP 139/67
[2019-07-31 12:00] VITALS: BP 132/88
[2019-07-31 16:00] VITALS: BP 128/55
[2019-07-31 20:00] VITALS: BP 130/79
[2019-08-01] VITALS: BP 134/75
[2019-08-01 06:41] LABS: BASO # 0.1 10*3/uL (0.0-0.1); EOS # 0.1 10*3/uL (0.0-0.4); HEMATOCRIT 30.6 % (37.0-47.0); HEMOGLOBIN 9.5 g/dl (12.0-16.0); LYMPH # 1.8 10*3/uL (1.3-4.4); LYMPH % 23.8 % (27.0-41.0); MEAN CELL VOLUME 86.4 fl (81.0-99.0); MEAN CORPUSCULAR HGB 26.8 pg (27.0-31.0); MEAN PLATELET VOLUME 9.5 fl (9.6-12.3); MONO # 1.1 10*3/uL (0.1-1.0); MONO % 15.5 % (3.0-9.0); NEUT # 4.2 10*3/uL (2.3-7.9); NEUT % 57.6 % (47.0-73.0); PLATELET COUNT AUTOMATED 425 10*3/uL (130-400); RED BLOOD COUNT 3.54 10*6/uL (4.10-5.10); RED CELL DISTRI WIDTH 13.7 % (0-14.5); WHITE BLOOD COUNT 7.4 10*3/uL (4.8-10.8)
[2019-08-01 07:19] LABS: CREATININE 1.18 mg/dL (0.55-1.02); POTASSIUM 3.8 mmol/L (3.5-5.1)
[2019-08-01 08:00] VITALS: BP 140/80
[2019-08-01] MEDS ORDERED: RIVASTIGMINE1 EACH T (10:32)
[2019-08-01] MEDS ORDERED: DIVALPROEX SOD250 MG PO (10:32)
[2019-08-01 12:00] VITALS: BP 128/68
== END 2019-08-01 13:00 | disposition other institution (70) | DRG 871 ==
LOC: ED 12:34 → 4E 14:09 → EDHOLD 14:09 → 4E 14:27
PROVIDERS: Emergency Medicine; Hospitalist; Internal Medicine; ADMIT Internal Medicine
DX: A41.9 Sepsis, unspecified organism (principal); N17.0 Acute kidney failure with tubular necrosis; E43 Unspecified severe protein-calorie malnutrition; G93.41 Metabolic encephalopathy; R65.21 Severe sepsis with septic shock; N39.0 Urinary tract infection, site not specified; E87.1 Hypo-osmolality and hyponatremia; K55.9 Vascular disorder of intestine, unspecified; D47.3 Essential (hemorrhagic) thrombocythemia; E78.2 Mixed hyperlipidemia; D64.9 Anemia, unspecified; E87.6 Hypokalemia; K27.9 Peptic ulcer, site unspecified, unspecified as acute or chronic, without hemorrhage or perforation; E03.9 Hypothyroidism, unspecified; N18.3 Chronic kidney disease, stage 3 (moderate); K21.9 Gastro-esophageal reflux disease without esophagitis; E78.5 Hyperlipidemia, unspecified; Z68.20 Body mass index [BMI] 20.0-20.9, adult; R41.9 Unspecified symptoms and signs involving cognitive functions and awareness; F32.9 Major depressive disorder, single episode, unspecified; I12.9 Hypertensive chronic kidney disease with stage 1 through stage 4 chronic kidney disease, or unspecified chronic kidney disease; E11.22 Type 2 diabetes mellitus with diabetic chronic kidney disease